=== PATIENT | male | born 1960 | race Caucasian/White ===

== ENCOUNTER 2017-03-27 04:54 | Observation (INO) | payer BC ==
--- NOTE | 2017-03-27 05:19 | EDPHY ---
H & P Stated Complaint: abd pain since fri and vomiting HPI/ROS: HPI CHIEF COMPLAINT: Cough, muscle aches, joint pain, nausea, vomiting, abdominal pain HISTORY OF PRESENT ILLNESS: This patient is a 56-year-old male significant past medical history for asthma, as well as hyperlipidemia he presents emergency room by private vehicle with his for not feeling well. Patient reports for the past 2 weeks he has been sick with an upper respiratory tract infection and sinus infection. He started a Z-Chaz for this earlier last week. He states additionally started prednisone causes asthma was acting up. He saw his primary care doctor Dr. Quinn. Additionally patient began having reflux after taking the prednisone and then developed and nausea vomiting he went to urgent care and got started on Zofran however he has been taking Zofran and continues to have nausea vomiting. He reports tonight that he vomiting got worse with more nausea no diarrhea. He does report that he has abdominal pain. Rather diffusely. He denies fever. Denies chills. Denies urinary symptoms. Does admit to generalized weakness, muscle aches and joint pain. Past Medical History: Hyperlipidemia, asthma Past Surgical History: No recent surgery Social History: Denies drugs alcohol tobacco products. Family History: Noncontributory ROS REVIEW OF SYSTEMS: A comprehensive 10 point review of systems is otherwise negative aside from elements mentioned in the history of present illness. Exam Constitutional appears nontoxic, dehydrated triage nursing summary reviewed, vital signs reviewed, awake/alert. Eyes normal conjunctivae and sclera, EOMI, PERRLA. HENT normal inspection, atraumatic, dry mucous membranes, no epistaxis, neck supple/ no meningismus, no raccoon eyes. Respiratory clear to auscultation bilaterally, normal breath sounds, no respiratory distress, no wheezing. Cardiovascular rate normal, regular rhythm, no murmur, no edema, distal pulses normal. Gastrointestinal mild tenderness to palpation throughout, no rebound, no guarding, normal bowel sounds, no distension, no pulsatile mass. Genitourinary no CVA tenderness. Musculoskeletal no midline vertebral tenderness, full range of motion, no calf swelling, no tenderness of extremities, no meningismus, good pulses, neurovascularly intact. Skin pink, warm, & dry, no rash, skin atraumatic. Neurologic awake, alert and oriented x 3, AAOx3, moves all 4 extremities equally, motor intact, sensory intact, CN II-XII intact, normal cerebellar, normal vision, normal speech. Psychiatric normal mood/affect. Heme/Lymph/Immune no lymphadenopathy. Differential diagnosis includes but is not limited to and in no particular order : Dehydration, electrolyte disturbance, influenza, pneumonia, Bowel obstruction , appendicitis, gallbladder disease, diverticulitis, colitis, enteritis, perforated viscus, gastritis, GERD, esophagitis, urinary tract infection, pyelonephritis, kidney stones Medical Decision Making: Plan for this patient IV establishment with full front desk monitor, IV fluid bolus 2 L, IV Zofran 4 mg, obtain EKG, troponin, chest x-ray two view to rule out pneumonia, CT scan abdomen pelvis with IV contrast to rule out acute abdominal process, influenza. Re-evaluation: EKG interpretation by me on record in [employer] system. Impression time of EKG 5:37 a.m., sinus rhythm rate of 87 I do not appreciate acute ischemic change on this EKG no ST elevation or ST depression. Q-wave noted in lead 3. Possible Q-wave in AVF. 0608: Blood work review this shows a positive troponin. He does not have any chest pain. Distally blood work review shows elevated lipase most likely from vomiting. He is pending a CT scan of his abdomen pelvis at this time. Will repeat his EKG due to the positive troponin. He has no chest pain. ED x-ray chest two view: Negative for pneumonia. Heart size normal. There is peribronchial thickening I appreciate. EKG interpretation by me on record in [employer] system. Impression this is a repeat EKG time a repeat EKG 6:07 a.m., sinus rhythm rate of 82 a Q-waves noted in in to 3 AVF. Otherwise I do not appreciate acute ischemia. T-wave flattening in the V4 V5 V6 leads. No ST elevation. 0653: I did re-evaluate him is back from CT scan is feeling slightly better with fluids. He has agreed for admission for nausea vomiting and abdominal pain. Patient CT scan abdomen pelvis with IV contrast is pending at this time. Influenza is negative. EKG does not seem overtly ischemic. Will admit to the hospitalist service Dr. Saldivar, for dehydration, acute nausea vomiting, generalized weakness, elevated troponin. CT scan abdomen pelvis with IV contrast called to me by Dr. Cortes this shows 8 mm dilated appendix with periappendiceal inflammation. Concerning for acute appendicitis. I will consult surgery and update the hospitalist service. 0717: Spoke with Dr. MALINI Hawkins. He will see and evaluate the patient for acute appendicitis. IV Invanz ordered. Patient updated. Hospitalist service updated. He would like the hospitalist service to continue to admit and he will consult for acute appendicitis. Source: Patient - Personal History Current Tetanus/Diphtheria Vaccine: Yes Current Tetanus Diphtheria and Acellular Pertussis (TDAP): Yes - Medical/Surgical History Hx Asthma: Yes Hx Chronic Respiratory Disease: No Hx Diabetes: No Hx Cardiac Disease: No Hx Renal Disease: No Hx Cirrhosis: No Hx Alcoholism: No Hx HIV/AIDS: No Hx Splenectomy or Spleen Trauma: No Other PMH: asthma - Social History Smoking Status: Never smoked Constitutional: Initial Vital Signs Temperature (C) 36.7 C 03/27/17 04:56 Heart Rate 91 03/27/17 04:56 Respiratory Rate 14 03/27/17 04:56 Blood Pressure 113/86 H 03/27/17 04:56 O2 Sat (%) 94 03/27/17 04:56 O2 Delivery Mode Room Air O2 (L/minute) 2 Allergies/Adverse Reactions: codeine Allergy (Verified 03/27/17 09:17) Vomiting Home Medications: Medication Instructions Recorded Albuterol [Proventil Inhaler HFA 1 - 2 puffs IH DAILY PRN 03/27/17 (*)] Aspirin [Aspirin 81mg (*)] 81 mg PO HS 03/27/17 Famotidine [Pepcid 20 MG (*)] 20 mg PO DAILY PRN 03/27/17 Mometasone/Formoterol [Dulera 200 2 puffs IH BID 03/27/17 Mcg/5 Mcg Inhaler] Ondansetron Odt [Zofran Odt 4 mg 4 mg PO DAILY PRN 03/27/17 (*)] Simvastatin [Zocor] 20 mg PO HS 03/27/17 guaiFENesin [Mucinex 600 MG (*)] 600 mg PO BID PRN 03/27/17 Hydrocodone/APAP 5/325 [[place] 2 tab PO Q4HRS PRN #14 tab 03/28/17 5/325 (*)] Medical Decision Making - Data Points Laboratory Results: Laboratory Results 03/27/17 05:20 03/27/17 05:20 Medications Given: Discontinued Medications Acetaminophen (Tylenol) 650 mg PO Q4HRS PRN PRN Reason: Pain, Mild/Fever, Can Take PO Stop: 09/23/17 06:51 Last Admin: 03/28/17 08:08 Dose: 650 mg Bupivacaine HCl (Sensorcaine 0.5% Vial) Confirm Administered Dose 30 ml .ROUTE .STK-MED ONE Stop: 03/27/17 12:03 Last Admin: 03/27/17 13:15 Dose: 20 ml Cefazolin Sodium (Ancef Syringe) Confirm Administered Dose 1 gm .ROUTE .STK-MED ONE Stop: 03/27/17 12:04 Last Admin: 03/27/17 14:37 Dose: Not Given Ertapenem (Invanz) 1 gm IVP ONCALL ONE PRN Reason: Protocol Stop: 03/27/17 07:11 Last Admin: 03/27/17 11:28 Dose: Not Given Ertapenem (Invanz) 1 gm IVP ONCALL ONE PRN Reason: Protocol Stop: 03/27/17 11:16 Last Admin: 03/27/17 15:03 Dose: Not Given Heparin Sodium (Porcine) (Heparin Sodium) Confirm Administered Dose 2,000 unit .ROUTE .STK-MED ONE Stop: 03/27/17 12:03 Last Admin: 03/27/17 14:39 Dose: Not Given Sodium Chloride (Ns) 1,000 mls @ 0 mls/hr IV EDNOW ONE; Wide Open PRN Reason: Protocol Stop: 03/27/17 05:28 Last Admin: 03/27/17 05:31 Dose: 1,000 mls Sodium Chloride (Ns) 1,000 mls @ 0 mls/hr IV EDNOW ONE; Wide Open PRN Reason: Protocol Stop: 03/27/17 05:28 Last Admin: 03/27/17 05:31 Dose: 1,000 mls Dextrose/Sodium Chloride (D5w 1/2 Ns) 1,000 mls @ 125 mls/hr IV CONT MARGI Stop: 09/23/17 06:59 Last Admin: 03/27/17 09:37 Dose: 1,000 mls Midazolam HCl (Versed) 2 mg IVP ONCALL ONE Stop: 03/27/17 12:28 Last Admin: 03/27/17 12:42 Dose: 2 mg Ondansetron HCl (Zofran) 4 mg IVP EDNOW ONE Stop: 03/27/17 05:28 Last Admin: 03/27/17 05:31 Dose: 4 mg Ondansetron HCl (Zofran) 4 mg IVP Q4HRS PRN PRN Reason: Nausea/Vomiting, Can't Take PO Stop: 09/23/17 06:51 Last Admin: 03/27/17 09:54 Dose: 4 mg Pantoprazole Sodium (Protonix) 40 mg IVP DAILY [facility] Stop: 09/23/17 08:59 Last Admin: 03/27/17 09:54 Dose: 40 mg Pantoprazole Sodium (Protonix) 40 mg PO DAILY [facility] Stop: 09/24/17 08:59 Last Admin: 03/28/17 08:08 Dose: 40 mg Promethazine HCl (Phenergan) 6.25 mg IVP ONCE ONE Stop: 03/27/17 06:57 Last Admin: 03/27/17 08:05 Dose: 6.25 mg Departure - Departure Disposition: [facility] Acute Clinical Impression: Dehydration, Elevated lipase, Elevated troponin Vomiting Qualifiers: Vomiting type: unspecified Vomiting Intractability: non-intractable Nausea presence: with nausea Qualified Code(s): R11.2 - Nausea with vomiting, unspecified Abdominal pain Qualifiers: Abdominal location: unspecified location Qualified Code(s): R10.9 - Unspecified abdominal pain Appendicitis Qualifiers: Appendicitis type: acute appendicitis Acute appendicitis type: with localized peritonitis Qualified Code(s): K35.3 - Acute appendicitis with localized peritonitis Condition: Fair
[2017-03-27] MEDS ORDERED: ONDANSETRON 4 MG/2 ML VIAL ONE ×2 (05:27→12:44)
[2017-03-27] MEDS ORDERED: ONDANSETRON 4 MG/2 ML VIAL IVP ONE (05:27)
[2017-03-27] MEDS ORDERED: NS 1,000 ML IV ONE ×2 (05:27)
[2017-03-27] MEDS ORDERED: IOPAMIDOL (ISOVUE-300) 100 ML BTL ONE (05:30)
[2017-03-27 05:38] LABS: % IMMATURE GRANULYOCYTES 0.6 % (0.0-1.1); ABSOLUTE IMMATURE GRANULOCYTES 0.09 10^3/uL (0.00-0.10); ADD DIFF? NO; ADD MORPH? NO; ADD SCAN? NO; ATYPICAL LYMPHOCYTE FLAG 20 (0-99); FRAGMENT RBC FLAG 0 (0-99); HEMATOCRIT 41.2 % (40.0-51.0); HEMOGLOBIN 14.4 g/dL (13.7-17.5); LEFT SHIFT FLG 10 (0-99); LIPEMIA HEMOLYSIS FLAG 90 (0-99); MEAN CELL HEMOGLOBIN 30.1 pg (27.9-34.1); MEAN PLATELET VOLUME 9.1 fL (8.7-11.7); PLATELET CLUMPS FLAG 0 (0-99); PLATELET COUNT 290 10^3/uL (150-400); RED BLOOD CELL COUNT 4.79 10^6/uL (4.40-6.38); RED CELL DISTRIBUTION WIDTH 13.2 % (11.5-15.2)
--- NOTE | 2017-03-27 05:38 | CPEKG ---
Heart Rate: 87 RR Interval: 690 P-R Interval: 156 QRSD Interval: 88 QT Interval: 356 QTC Interval: 429 P Gem: 63 QRS Gem: -32 T Wave Gem: 23 EKG Severity - ABNORMAL ECG - EKG Impression: SINUS RHYTHM EKG Impression: PROBABLE INFERIOR INFARCT, AGE INDETERMINATE Electronically Signed By: Kelvin Schwartz 27-Mar-2017 07:19:27
[2017-03-27 05:43] LABS: ALANINE AMINOTRANSFERASE 63 IU/L (21-72); ALBUMIN 3.5 g/dL (3.5-5.0); ALKALINE PHOSPHATASE 147 IU/L (38-126); ANION GAP 14 mEq/L (8-16); ASPARTATE AMINOTRANSFERASE 28 IU/L (17-59); BILIRUBIN,TOTAL 1.1 mg/dL (0.1-1.4); BILIRUBIN-CONJUGATED 0.6 mg/dL (0.0-0.5); BILIRUBIN-UNCONJUGATED 0.5 mg/dL (0.0-1.1); CALCIUM 9.1 mg/dL (8.5-10.4); CARBON DIOXIDE 26 mEq/l (22-31); CHLORIDE 97 mEq/L (97-110); CREATININE 0.9 mg/dL (0.7-1.3); GLOMERULAR FILTRATION RATE > 60; GLUCOSE 126 mg/dL (70-100); POTASSIUM 4.2 mEq/L (3.5-5.2); SODIUM 137 mEq/L (134-144); TOTAL PROTEIN 7.1 g/dL (6.3-8.2)
[2017-03-27 05:52] LABS: INR 1.14 (0.83-1.16); PROTIME(PATIENT) 14.8 SEC (12.0-15.0)
[2017-03-27 05:53] LABS: APTT 33.9 SEC (23.0-38.0)
[2017-03-27] MEDS ORDERED: ONDANSETRON DISINTEGRATING 4 MG TAB PO PRN (06:52)
[2017-03-27] MEDS ORDERED: PROMETHAZINE HCL 25 MG/ML INJ IVP PRN ×2 (06:52→13:31)
[2017-03-27] MEDS ORDERED: ONDANSETRON 4 MG/2 ML VIAL IVP PRN ×2 (06:52→13:31)
[2017-03-27] MEDS ORDERED: ACETAMINOPHEN 325 MG TAB PO PRN (06:52)
[2017-03-27] MEDS ORDERED: ALBUTEROL 3 ML DEYVIAL IH PRN ×2 (06:52→13:31)
[2017-03-27] MEDS ORDERED: PROMETHAZINE HCL 25 MG/ML INJ IVP ONE (06:56)
--- NOTE | 2017-03-27 06:56 | CPEKG ---
Heart Rate: 82 RR Interval: 732 P-R Interval: 168 QRSD Interval: 90 QT Interval: 360 QTC Interval: 421 P Foster: 56 QRS Foster: -43 T Wave Foster: 19 EKG Severity - BORDERLINE ECG - EKG Impression: SINUS RHYTHM EKG Impression: LEFT AXIS DEVIATION EKG Impression: LOW VOLTAGE IN FRONTAL LEADS EKG Impression: BORDERLINE T WAVE ABNORMALITIES Electronically Signed By: Kelvin Schwartz 27-Mar-2017 07:19:27
[2017-03-27] MEDS ORDERED: D5W 1/2 NS 1,000 ML IV SCH (07:00)
[2017-03-27] MEDS ORDERED: ERTAPENEM 1 GM VIAL IVP ONE ×2 (07:10→11:15)
[2017-03-27] MEDS ORDERED: HYDROmorphONE/DILAUDID 1 MG/ML INJ IVP PRN ×2 (07:25→13:31)
[2017-03-27] MEDS ORDERED: HYDROCODONE/APAP 5/325 TAB PO PRN ×2 (07:27→13:31)
[2017-03-27] MEDS ORDERED: HYDROmorphone HCL/NS/PF 0.4 MG/2 ML SYR IVP PRN (07:29)
--- NOTE | 2017-03-27 07:32 | PDGENHP ---
History and Physical - Chief Complaint Nausea - History of Present Illness 56 yo M w/ asthma presents with several days of intractable nausea and vomiting. Patient initially had an upper respiratory infection in late February that caused an asthma exacerbation. About 10 days ago he was prescribed a 3 day course of azithromycin and prednisone by his PCP. Since Friday(03/21), he has had constant nausea and has been unable to tolerate PO. He has been to urgent care to receive IVF and Zofran, which helps, but he feels he is dependent on this to be even somewhat comfortable. He has become very frustrated with his nausea so he came to the ED for evaluation. In the ED the preliminary read for his abdominal Ct indicated appendicitis. Surgical service (Dr. Hawkins) was contacted who requested he be admitted to the hospital medicine service. Laboratory work-up remarkable for leukocytosis, elevated lipase, and elevated troponin. He denies any chest pain or cardiac history. History Information - Allergies/Home Medication List Allergies/Adverse Reactions: codeine Allergy (Verified 03/27/17 04:59) Home Medications: Aspirin 81mg (*) 03/27/17 [Last Taken Unknown] Dulera 100 Mcg/5 Mcg Inhaler 03/27/17 [Last Taken Unknown] I have personally reviewed and updated: family history, medical history - Past Medical History asthma - Surgical History Reports: no pertinent surgical hx - Family History Positive for: cancer - Social History Smoking Status: Never smoked Review of Systems Review of Systems: ROS: 10pt was reviewed & negative except for what was stated in HPI & below Physical Exam Physical Exam: Temp Pulse Resp BP Pulse Ox 36.7 C 81 14 119/78 95 03/27/17 04:56 03/27/17 06:00 03/27/17 06:00 03/27/17 06:00 03/27/17 06:00 Constitutional: appears nourished, uncomfortable Eyes: PERRL, EOMI Ears, Nose, Mouth, Throat: moist mucous membranes, dry mucous membranes Cardiovascular: regular rate and rhythym, no murmur, rub, or gallop Respiratory: no respiratory distress, clear to auscultation Gastrointestinal: normoactive bowel sounds, soft, non-tender abdomen Skin: warm, normal color Musculoskeletal: full muscle strength, no muscle tenderness Neurologic: AAOx3, CN II-XII Intact Psychiatric: interacting appropriately, not anxious Lab Data & Imaging Review 03/27/17 05:20 03/27/17 05:20 WBC 14.67 10^3/uL (3.80-9.50) H 03/27/17 05:20 RBC 4.79 10^6/uL (4.40-6.38) 03/27/17 05:20 Hgb 14.4 g/dL (13.7-17.5) 03/27/17 05:20 Hct 41.2 % (40.0-51.0) 03/27/17 05:20 MCV 86.0 fL (81.5-99.8) 03/27/17 05:20 MCH 30.1 pg (27.9-34.1) 03/27/17 05:20 MCHC 35.0 g/dL (32.4-36.7) 03/27/17 05:20 RDW 13.2 % (11.5-15.2) 03/27/17 05:20 Plt Count 290 10^3/uL (150-400) 03/27/17 05:20 MPV 9.1 fL (8.7-11.7) 03/27/17 05:20 Neut % (Auto) 85.5 % (39.3-74.2) H 03/27/17 05:20 Lymph % (Auto) 5.5 % (15.0-45.0) L 03/27/17 05:20 [place] % (Auto) 7.4 % (4.5-13.0) 03/27/17 05:20 Eos % (Auto) 0.5 % (0.6-7.6) L 03/27/17 05:20 Baso % (Auto) 0.5 % (0.3-1.7) 03/27/17 05:20 Nucleat RBC Rel Count 0.0 % (0.0-0.2) 03/27/17 05:20 Absolute Neuts (auto) 12.54 10^3/uL (1.70-6.50) H 03/27/17 05:20 Absolute Lymphs (auto) 0.81 10^3/uL (1.00-3.00) L 03/27/17 05:20 Absolute Monos (auto) 1.08 10^3/uL (0.30-0.80) H 03/27/17 05:20 Absolute Eos (auto) 0.08 10^3/uL (0.03-0.40) 03/27/17 05:20 Absolute Basos (auto) 0.07 10^3/uL (0.02-0.10) 03/27/17 05:20 Absolute Nucleated RBC 0.00 10^3/uL (0-0.01) 03/27/17 05:20 Immature Gran % 0.6 % (0.0-1.1) 03/27/17 05:20 Immature Gran # 0.09 10^3/uL (0.00-0.10) 03/27/17 05:20 PT 14.8 SEC (12.0-15.0) 03/27/17 05:20 INR 1.14 (0.83-1.16) 03/27/17 05:20 APTT 33.9 SEC (23.0-38.0) 03/27/17 05:20 VBG Lactic Acid 1.2 mmol/L (0.7-2.1) 03/27/17 06:20 Sodium 137 mEq/L (134-144) 03/27/17 05:20 Potassium 4.2 mEq/L (3.5-5.2) 03/27/17 05:20 Chloride 97 mEq/L (97-110) 03/27/17 05:20 Carbon Dioxide 26 mEq/l (22-31) 03/27/17 05:20 Anion Gap 14 mEq/L (8-16) 03/27/17 05:20 BUN 15 mg/dL (7-23) 03/27/17 05:20 Creatinine 0.9 mg/dL (0.7-1.3) 03/27/17 05:20 Estimated GFR > 60 03/27/17 05:20 Glucose 126 mg/dL (70-100) H 03/27/17 05:20 Calcium 9.1 mg/dL (8.5-10.4) 03/27/17 05:20 Total Bilirubin 1.1 mg/dL (0.1-1.4) D 03/27/17 05:20 Conjugated Bilirubin 0.6 mg/dL (0.0-0.5) H 03/27/17 05:20 Unconjugated Bilirubin 0.5 mg/dL (0.0-1.1) 03/27/17 05:20 AST 28 IU/L (17-59) 03/27/17 05:20 ALT 63 IU/L (21-72) 03/27/17 05:20 Alkaline Phosphatase 147 IU/L (38-126) H 03/27/17 05:20 Troponin I 0.390 ng/mL (0.000-0.034) H 03/27/17 05:20 Total Protein 7.1 g/dL (6.3-8.2) 03/27/17 05:20 Albumin 3.5 g/dL (3.5-5.0) 03/27/17 05:20 Lipase 1327 IU/L (23-300) H 03/27/17 05:20 Nasal Influenza A PCR NEGATIVE FOR FLU A (NEGATIVE) 03/27/17 05:30 Nasal Influenza B PCR NEGATIVE FOR FLU B (NEGATIVE) 03/27/17 05:30 Imaging Review: CT A/P consistent with acute appendicitis. Visualized and Interpreted EKG results: Yes EKG Interpretation: Positive for: normal sinsus rhythm, NS ST wave abnormalities Assessment & Plan Assessment: 56 yo M w/ asthma presents with several days of intractable nausea and vomiting found to have likely acute appendicitis on CT. Plan: 1. Nausea, vomiting - CT findings concerning for acute appendicitis, although this is an atypical presentation noting minimal tenderness. Patient also describes significant reflux symptoms, so may have some element of overlying gastritis. Clinically picture is not consistent with pancreatitis despite elevated lipase. - NPO, mIVF, Zofran and Phenergan PRN - Will also start daily PPI (IV for now while not tolerating PO) 2. Acute appendicitis - Diagnosis mostly based on CT findings; atypical presentation noting minimal pain. WBC elevated at 14. - Surgery consulted, appreciate assistance - Maintain NPO 3. Elevated troponin - 0.39 on admission with no symptoms to suggest ACS. ECG without evidence of ischemia. This likely represents either demand or possibly mild myocarditis. Will trend enzymes and monitor on telemetry. 4. Asthma - On Dulera for daily control with albuterol PRN. He had an exacerbation in late February but seems well controlled at this time on exam. Continue home medications. Diet - NPO Code - Full Ppx - SCDs Dispo - Admit to observation status
[2017-03-27] MEDS ORDERED: ENOXAPARIN 40 MG/0.4 ML SYR SC SCH (09:00)
[2017-03-27] MEDS ORDERED: PANTOPRAZOLE SODIUM 40 MG VIAL IVP SCH (09:00)
[2017-03-27 10:16] LABS: COLOR YELLOW; LEUKOCYTE ESTERASE,URINE NEGATIVE (NEGATIVE); NITRITE,URINE NEGATIVE (NEGATIVE)
[2017-03-27 10:19] LABS: MUCUS 2+ /lpf (NONE-1+)
--- NOTE | 2017-03-27 10:32 | ECHO ---
[email or web address] [address] [address] Main: [phone] Fax: [email or web address] Echocardiogram Name: GENTRY FERNÁNDEZ MR#: [id number] Study Date: 03/27/2017 Study Time: 08:39 AM Date of : 1960 Age: 56 year(s) Height: ( ) Weight: ( ) BSA: Gender: Male Examination: Echo Indication: elev troponin; pre-op stat echo Image Quality: Technically Difficult Contrast: Requested by: Gentry Méndez BP: 109 mmHg/55 mmHg Heart Rate: Rhythm: Normal sinus rhythm Indication: elev troponin; pre-op stat echo Procedure Staff Folder Machine Operator: Hyun Lyons Reading Physician: Julio C Bains Requesting Provider: Conclusions: Normal global systolic LV function. EF is 65 %. Normal RV function. Trivial to mild mitral regurgitation. Trivial tricuspid valve regurgitation. Measurements: Chambers Valvular Assessment AV/MV Valvular Assessment TV/PV Normal Normal Normal Name Value Range Name Value Range Name Value Range Ao Lani (MM): 3.6 cm (2.2 cm-3.7 AV Vmax: 1.02 m/s (1 m/s-1.7 PV Vmax: 0.84 m/s (0.6 m/s-0.9 cm) m/s) m/s) IVSd (2D): 1.2 cm (0.6 cm-1.1 AV maxP mmHg ( - ) PV PGmax: 3 mmHg ( - ) cm) LVOT Vmax: 0.84 m/s (0.7 m/s-1.1 LVDd (2D): 5.0 cm (4.2 cm-5.9 m/s) cm) MV E Vmax: 0.60 m/s ( - ) LVDs (2D): 3.0 cm (2.1 cm-4 MV A Vmax: 0.42 m/s ( - ) cm) MV E/A: 1.43 ( - ) LVPWd (2D): 0.9 cm (0.6 cm-1 cm) LVEF (BP): 65 % (>=55 %) RVDd(2D): 2.8 cm (1.9 cm-3.8 cmmm) Continued Measurements: Chambers Valvular Assessment AV/MV Name Value Name Value LADs Lon.4 cm MV DecTime: 151 m/s LA Area: 18.6 cm2 MV E/E' Septal: 7.20 Patient: GENTRY FERNÁNDEZ Study Date: 03/27/2017 Page 1 of 2 08:39 AM LA Volume: 57 ml MV E/E' Lateral: 6.70 RA Area: 12.7 cm2 Additional Vessels Name Value Ao Ascendin.1 cm Findings: Left Ventricle: Normal size left ventricle. Borderline concentric LV hypertrophy. Normal global systolic LV function. EF is 65 %. Normal diastolic LV function. No obvious regional wall motion abnormalities noted, however it is difficult to completely rule out due to poor endocardial definition in the apical views. . Right Ventricle: Normal size right ventricle. Normal RV function. Left Atrium: The left atrium is normal in size. Right Atrium: The right atrium is normal in size. Mitral Valve: The mitral valve is normal in appearance. Trivial to mild mitral regurgitation. No mitral stenosis is present. Aortic Valve: The aortic valve is tri-leaflet. There is no aortic valve regurgitation. No aortic valve stenosis is present. Tricuspid Valve: The tricuspid valve appears normal. Trivial tricuspid valve regurgitation. Pulmonary artery pressure is not obtained due to inadequate TR jet. Pulmonic Valve: The pulmonic valve is normal in appearance and function. Mild pulmonic valve regurgitation is noted. Aorta: The aorta is normal. Normal size aortic root measuring 3.6 cm. Normal size ascending aorta measuring 3.1 cm. IVC: The IVC is normal sized. Pericardium: No pericardial effusion. (No Signature Object) Patient: GENTRY FERNÁNDEZ Study Date: 03/27/2017 Page 2 of 2 08:39 AM [id number]
--- NOTE | 2017-03-27 11:06 | PDCARCONS ---
Cardiology Consult Reason for Consult: Surgery clearance from cardiology Chief Complaint: Acute appendicitis, ongoing nausea with occasional emesis Requesting Physician: Dr. Junaid Hawkins History of Present Illness: HPI: The patient is a 56-year-old male with no cardiac history. He was evaluated in the emergency department for ongoing nausea and was admitted for appendicitis. The patient was treated with Prednisone and Azithromycin for asthma and URI symptoms 1.5 weeks ago. After starting the treatment he developed esophageal burning and nausea. His nausea has since remained constant with intermittent bouts of emesis for 1 week. He was evaluated in the emergency department and found to have acute appendicitis seen on CT. His lab work showed elevated leukocytosis, elevated lipase, and elevated troponin. 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 Dr. Hawkins has requested a cardiology consultation prior to surgery. I examined the patient. The patient states he has no history of prior TN. He had an echocardiogram 2 years ago that was normal according to his report. His recent echo performed during admission was normal with normal heart power. 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 Past Medical History: Asthma Family History: The patients father had TN at age 46. Social History: . Nonsmoker. History Information - Allergies/Home Medication List Allergies/Adverse Reactions: codeine Allergy (Verified 03/27/17 09:17) Vomiting Home Medications: Albuterol [Proventil Inhaler HFA (*)] 1 - 2 puffs IH DAILY PRN 03/27/17 [Last Taken Unknown] Aspirin [Aspirin 81mg (*)] 81 mg PO HS 03/27/17 [Last Taken 03/24/17] Famotidine [Pepcid 20 MG (*)] 20 mg PO DAILY PRN 03/27/17 [Last Taken 03/27/17 02:00] Mometasone/Formoterol [Dulera 200 Mcg/5 Mcg Inhaler] 2 puffs IH BID 03/27/17 [ Last Taken 03/27/17 07:00] Ondansetron Odt [Zofran Odt 4 mg (*)] 4 mg PO DAILY PRN 03/27/17 [Last Taken 02:00] Simvastatin [Zocor] 20 mg PO HS 03/27/17 [Last Taken 03/24/17] guaiFENesin [Mucinex 600 MG (*)] 600 mg PO BID PRN 03/27/17 [Last Taken 03/26/17 ] I have personally reviewed and updated: family history, medical history, social history, surgical history - Past Medical History asthma - Surgical History Reports: no pertinent surgical hx - Family History Additional family history: The patients father had an TN at age 46. - Social History Smoking Status: Never smoked Physical Exam Physical Exam: Temp Pulse Resp BP Pulse Ox 37.1 C 81 24 H 109/56 L 93 03/27/17 10:21 03/27/17 10:21 03/27/17 10:21 03/27/17 10:21 03/27/17 10:21 O2 (L/minute) 1 Constitutional: no apparent distress Eyes: anicteric sclera Ears, Nose, Mouth, Throat: moist mucous membranes Cardiovascular: regular rate and rhythym, no murmur, rub, or gallop, No JVD, No edema Respiratory: no respiratory distress, no rales or rhonchi, expiratory wheeze Gastrointestinal: normoactive bowel sounds, tenderness, No guarding Skin: warm, normal color Lab and Imaging 03/27/17 05:20 03/27/17 05:20 WBC 14.67 10^3/uL (3.80-9.50) H 03/27/17 05:20 RBC 4.79 10^6/uL (4.40-6.38) 03/27/17 05:20 Hgb 14.4 g/dL (13.7-17.5) 03/27/17 05:20 Hct 41.2 % (40.0-51.0) 03/27/17 05:20 MCV 86.0 fL (81.5-99.8) 03/27/17 05:20 MCH 30.1 pg (27.9-34.1) 03/27/17 05:20 MCHC 35.0 g/dL (32.4-36.7) 03/27/17 05:20 RDW 13.2 % (11.5-15.2) 03/27/17 05:20 Plt Count 290 10^3/uL (150-400) 03/27/17 05:20 MPV 9.1 fL (8.7-11.7) 03/27/17 05:20 Neut % (Auto) 85.5 % (39.3-74.2) H 03/27/17 05:20 Lymph % (Auto) 5.5 % (15.0-45.0) L 03/27/17 05:20 [place] % (Auto) 7.4 % (4.5-13.0) 03/27/17 05:20 Eos % (Auto) 0.5 % (0.6-7.6) L 03/27/17 05:20 Baso % (Auto) 0.5 % (0.3-1.7) 03/27/17 05:20 Nucleat RBC Rel Count 0.0 % (0.0-0.2) 03/27/17 05:20 Absolute Neuts (auto) 12.54 10^3/uL (1.70-6.50) H 03/27/17 05:20 Absolute Lymphs (auto) 0.81 10^3/uL (1.00-3.00) L 03/27/17 05:20 Absolute Monos (auto) 1.08 10^3/uL (0.30-0.80) H 03/27/17 05:20 Absolute Eos (auto) 0.08 10^3/uL (0.03-0.40) 03/27/17 05:20 Absolute Basos (auto) 0.07 10^3/uL (0.02-0.10) 03/27/17 05:20 Absolute Nucleated RBC 0.00 10^3/uL (0-0.01) 03/27/17 05:20 Immature Gran % 0.6 % (0.0-1.1) 03/27/17 05:20 Immature Gran # 0.09 10^3/uL (0.00-0.10) 03/27/17 05:20 PT 14.8 SEC (12.0-15.0) 03/27/17 05:20 INR 1.14 (0.83-1.16) 03/27/17 05:20 APTT 33.9 SEC (23.0-38.0) 03/27/17 05:20 VBG Lactic Acid 1.2 mmol/L (0.7-2.1) 03/27/17 06:20 Sodium 137 mEq/L (134-144) 03/27/17 05:20 Potassium 4.2 mEq/L (3.5-5.2) 03/27/17 05:20 Chloride 97 mEq/L (97-110) 03/27/17 05:20 Carbon Dioxide 26 mEq/l (22-31) 03/27/17 05:20 Anion Gap 14 mEq/L (8-16) 03/27/17 05:20 BUN 15 mg/dL (7-23) 03/27/17 05:20 Creatinine 0.9 mg/dL (0.7-1.3) 03/27/17 05:20 Estimated GFR > 60 03/27/17 05:20 Glucose 126 mg/dL (70-100) H 03/27/17 05:20 Calcium 9.1 mg/dL (8.5-10.4) 03/27/17 05:20 Total Bilirubin 1.1 mg/dL (0.1-1.4) D 03/27/17 05:20 Conjugated Bilirubin 0.6 mg/dL (0.0-0.5) H 03/27/17 05:20 Unconjugated Bilirubin 0.5 mg/dL (0.0-1.1) 03/27/17 05:20 AST 28 IU/L (17-59) 03/27/17 05:20 ALT 63 IU/L (21-72) 03/27/17 05:20 Alkaline Phosphatase 147 IU/L (38-126) H 03/27/17 05:20 Troponin I 0.397 ng/mL (0.000-0.034) H 03/27/17 08:25 Total Protein 7.1 g/dL (6.3-8.2) 03/27/17 05:20 Albumin 3.5 g/dL (3.5-5.0) 03/27/17 05:20 Lipase 1327 IU/L (23-300) H 03/27/17 05:20 Urine Color YELLOW 03/27/17 09:40 Urine Appearance CLEAR 03/27/17 09:40 Urine pH 5.0 (5.0-7.5) 03/27/17 09:40 Ur Specific [place] > 1.035 (1.002-1.030) H 03/27/17 09:40 Urine Protein 1+ (NEGATIVE) H 03/27/17 09:40 Urine Ketones 1+ (NEGATIVE) H 03/27/17 09:40 Urine Blood 2+ (NEGATIVE) H 03/27/17 09:40 Urine Nitrate NEGATIVE (NEGATIVE) 03/27/17 09:40 Urine Bilirubin NEGATIVE (NEGATIVE) 03/27/17 09:40 Urine Urobilinogen 4.0 EU (0.2-1.0) H 03/27/17 09:40 Ur Leukocyte Esterase NEGATIVE (NEGATIVE) 03/27/17 09:40 Urine RBC 3-5 /hpf (0-3) H 03/27/17 09:40 Urine WBC 1-3 /hpf (0-3) 03/27/17 09:40 Ur Epithelial Cells NONE SEEN /lpf (NONE-1+) 03/27/17 09:40 Hyaline Casts 1-5 /lpf (0-1) 03/27/17 09:40 Urine Mucus 2+ /lpf (NONE-1+) H 03/27/17 09:40 Urine Glucose NEGATIVE (NEGATIVE) 03/27/17 09:40 Nasal Influenza A PCR NEGATIVE FOR FLU A (NEGATIVE) 03/27/17 05:30 Nasal Influenza B PCR NEGATIVE FOR FLU B (NEGATIVE) 03/27/17 05:30 Visualized and Interpreted EKG results: Yes EKG Interpretation: Positive for: other (sinus rhythm cannot rule out old inferior TN , ay be a funciotn of extreme left axis deviation.) Telemetry: normal sinus rhythm Echocardiogram: See full report concentric LVH without segmental wall motion abnormality. no serious valvular heart disease... A/P Assessment: Assessment: I spoke with the patient and his and discussed the risks and benefits of appendectomy. They have elected to proceed with the planned surgery of appendectomy given the potential benefits of the outcome. The patient is at an increased risk of perioperative cardiovascular event given his abnormal EKG, minimally elevated troponin level and family history of heart disease. However, I believe the risk is acceptably low given the expected benefits of the operation or appendectomy for what appears to be acute appendicitis. In patient's with normal ejection fraction, the risk of sudden incapacitation from sustained VT or VF is very low. He can proceed with the planned surgery of appendectomy without further cardiac testing. He will need an assessment of his coronary arteries at some point to rule out obstructive coronary disease. I spoke to Dr. Junaid Hawkins, General surgery, and have updated him on the patient's cardiac status. He will proceed with the planned surgery for appendicitis.
[2017-03-27] MEDS ORDERED: BUPIVACAINE 0.5% 30 ML SDV ONE (12:02)
[2017-03-27] MEDS ORDERED: HEPARIN 1000 UNIT/1 ML MDV ONE (12:02)
[2017-03-27] MEDS ORDERED: ceFAZolin 1 GM/5 ML SYR ONE (12:03)
[2017-03-27] MEDS ORDERED: MIDAZOLAM 2 MG/2 ML VIAL IVP ONE (12:27)
--- NOTE | 2017-03-27 12:31 | PDANEPAE ---
ANE Past Medical History - Cardiovascular History Hx Hypertension: No Hx Arrhythmias: No Hx Chest Pain: No Hx Coronary Artery / Peripheral Vascular Disease: No Hx CHF / Valvular Disease: No Hx Palpitations: No - Pulmonary History Hx COPD: No Hx Asthma/Reactive Airway Disease: Yes Hx Recent Upper Respiratory Infection: Yes Hx Oxygen in Use at Home: No Hx Sleep Apnea: No Sleep Apnea Screening Result - Last Documented: Positive - Endocrine History Hx Diabetes: No Hypothyroid: No Hyperthyroid: No Obesity: mild - Chronic Pain History Chronic Pain: No ANE Review of Systems Review of Systems: - Exercise capacity METS (RN): 5 METS ANE Patient History - Allergies Allergies/Adverse Reactions: codeine Allergy (Verified 03/27/17 09:17) Vomiting - Home Medications Home Medications: Albuterol [Proventil Inhaler HFA (*)] 1 - 2 puffs IH DAILY PRN 03/27/17 [Last Taken Unknown] Aspirin [Aspirin 81mg (*)] 81 mg PO HS 03/27/17 [Last Taken 03/24/17] Famotidine [Pepcid 20 MG (*)] 20 mg PO DAILY PRN 03/27/17 [Last Taken 03/27/17 02:00] Mometasone/Formoterol [Dulera 200 Mcg/5 Mcg Inhaler] 2 puffs IH BID 03/27/17 [ Last Taken 03/27/17 07:00] Ondansetron Odt [Zofran Odt 4 mg (*)] 4 mg PO DAILY PRN 03/27/17 [Last Taken 02:00] Simvastatin [Zocor] 20 mg PO HS 03/27/17 [Last Taken 03/24/17] guaiFENesin [Mucinex 600 MG (*)] 600 mg PO BID PRN 03/27/17 [Last Taken 03/26/17 ] - NPO status NPO Since - Liquids (Date): 03/26/17 NPO Since - Liquids (Time): 02:00 NPO Since - Solids (Date): 03/26/17 NPO Since - Solids (Time): 19:00 - Anes Hx Anes Hx: no prior problems - Smoking Hx Smoking Status: Never smoked - Alcohol Use Alcohol Use: Occasionally ANE Labs/Vital Signs - Labs Result Diagrams: 03/27/17 05:20 03/27/17 05:20 - Vital Signs Blood Pressure: 110/73 Heart Rate: 83 Respiratory Rate: 20 O2 Sat (%): 91 Height: 172.72 cm Weight: 96.5 kg ANE Physical Exam - Airway Neck exam: FROM Mouth exam: normal dental/mouth exam - Pulmonary Pulmonary: no respiratory distress, no rales or rhonchi, clear to auscultation - Cardiovascular Cardiovascular: regular rate and rhythym - ASA Status ASA Status: II ANE Anesthesia Plan Anesthesia Plan: general endotracheal anesthesia
[2017-03-27] MEDS ORDERED: MIDAZOLAM 2 MG/2 ML VIAL ONE (12:40)
[2017-03-27] MEDS ORDERED: fentaNYL 100 MCG/2 ML INJ ONE (12:40)
[2017-03-27] MEDS ORDERED: REMIFENTANIL HCL 1 MG VIAL ONE (12:40)
[2017-03-27] MEDS ORDERED: PROPOFOL/EMULSION 500 MG/50 ML BOTTLE IV ONE (12:41)
[2017-03-27] MEDS ORDERED: PROPOFOL 200 MG/20 ML VIAL ONE (12:41)
[2017-03-27] MEDS ORDERED: LIDOCAINE 2% 5 ML SDV ONE (12:42)
[2017-03-27] MEDS ORDERED: ROCURONIUM 50 MG/5 ML VIAL ONE (12:43)
[2017-03-27] MEDS ORDERED: KETOROLAC 30 MG/1 ML SDV ONE (12:44)
[2017-03-27] MEDS ORDERED: DEXAMETHASONE 4 MG/ML VIAL ONE (12:44)
[2017-03-27] MEDS ORDERED: OXYCODONE/APAP 5/325 TAB PO PRN (13:31)
[2017-03-27] MEDS ORDERED: LR 500 ML IV PRN (13:31)
[2017-03-27] MEDS ORDERED: NALOXONE HCL 0.4 MG/ML INJ IVP PRN (13:31)
[2017-03-27] MEDS ORDERED: ACETAMINOPHEN 500 MG TAB PO PRN (13:31)
[2017-03-27] MEDS ORDERED: MEPERIDINE 25 MG/ML SYR IVP PRN (13:31)
[2017-03-27] MEDS ORDERED: fentaNYL 100 MCG/2 ML INJ IVP PRN (13:31)
[2017-03-27] MEDS ORDERED: SUGAMMADEX SODIUM 200 MG/2 ML VIAL IVP ONE (13:40)
--- NOTE | 2017-03-27 14:24 | POSTOPPROG ---
Post Op Note Date of Operation: 03/27/17 Surgeon: Bandar Hawkins Infectious Disease Physician: Yonatan Bruce Anesthesiologist: Dr Kirkland Anesthesia: GET(General Endotracheal) Pre-op Diagnosis: appendicitis Post-op Diagnosis: same Indication: same Procedure: lap appendectomy Findings: inflammed appendix Inf/Abcess present in the surg proc area at time of surgery?: No Depth: Organ Space EBL: Minimal Specimen(s): appendix
--- NOTE | 2017-03-27 14:34 | POSTANESTH ---
Post Anesthetic Evaluation Cardiovascular Status: Normal, Stable Respiratory Status: Normal, Stable Level of Consciousness/Mental Status: Can Participate in Eval Pain Control: Adequate, Prn Tx Ordered Nausea/Vomiting Control: Adequate, Prn Tx Ordered Complications Possibly Related to Anesthesia: None Noted
--- NOTE | 2017-03-27 15:15 | ASMTCASEMG ---
Living Arrangements What is your living Answers: With Spouse arrangement? Who do you live with? Type Of Residence What kind of residence do Answers: House you live in? Discharge Plan Comments Coordination Status Comments Notes: Pt is a 56 y/o man admitted for nausea. Pt had his appedix removed yesterday. No therapies ordered at this time. Pt will most likely d/c independent when medically stable. CM available for changes. Plan: Independent Date Signed: 03/27/2017 03:15 PM Electronically Signed By:MISTI Garza
--- NOTE | 2017-03-27 16:19 | HOSPPROG ---
Hospitalist Progress Note Assessment/Plan: # Acute appendicitis - in OR currently - cleared by cardiology prior - monitor post-op current without nausea - diet per surgery # Abnormal EKG with indeterminate trop - seen by Cardiology - oxygen saturations 95% on 2L TELE (personally reviewed and interpreted) Sinus rhythm no acute changes - follow troponin 0.39 this am - if does not bump expect outpatient risk stratification is appropriate # Proph- when cleared by Hawkins # diet - per surgery # dispo - suspect tomorrow if smooth post op recovery and no bump in troponins I have discussed the case with RN - will provide supportive care overnight Subjective: mild abd pain Objective: Vital Signs Temp Pulse Resp BP Pulse Ox 36.5 C 79 16 103/68 95 03/27/17 15:45 03/27/17 15:45 03/27/17 15:45 03/27/17 15:45 03/27/17 15:45 03/26/17 03/27/17 03/28/17 05:59 05:59 05:59 Intake Total 250 Balance 250 PT 14.8 SEC (12.0-15.0) 03/27/17 05:20 INR 1.14 (0.83-1.16) 03/27/17 05:20 - Physical Exam Constitutional: appears nourished Eyes: anicteric sclera Ears, Nose, Mouth, Throat: moist mucous membranes Cardiovascular: regular rate and rhythym Respiratory: no respiratory distress, no rales or rhonchi Gastrointestinal: normoactive bowel sounds, tenderness, No rebound Genitourinary: no bladder fullness Skin: warm Musculoskeletal: No asymmetric calves Neurologic: AAOx3 Psychiatric: interacting appropriately Lymph, Heme, Immunologic: no cervical LAD ICD10 Worksheet Patient Problems: Problems Problem Status Onset Abdominal pain Acute Appendicitis Acute Dehydration Acute Elevated lipase Acute Elevated troponin Acute Vomiting Acute
--- NOTE | 2017-03-27 19:37 | SOAPPROG ---
SOAP Progress Note Assessment/Plan: Assessment: Postop lap appy/doing well/afebrile/abdomen soft/tolerating p.o. Plan: Home in the a.m. if okay with cardiology 03/27/17 19:36 Objective: Vital Signs Temp Pulse Resp BP Pulse Ox 37.0 C 80 20 98/69 L 92 03/27/17 18:28 03/27/17 18:28 03/27/17 18:28 03/27/17 18:28 03/27/17 18:28 03/26/17 03/27/17 03/28/17 05:59 05:59 05:59 Intake Total 610 Output Total 675 Balance -65 PT 14.8 SEC (12.0-15.0) 03/27/17 05:20 INR 1.14 (0.83-1.16) 03/27/17 05:20 ICD10 Worksheet Patient Problems: Problems Problem Status Onset Abdominal pain Acute Appendicitis Acute Dehydration Acute Elevated lipase Acute Elevated troponin Acute Vomiting Acute
[2017-03-27 20:19] VITALS: RESP 16
[2017-03-28 07:45] VITALS: BP 117/77; PULSE 85; TEMP 98.4; O2SAT 91
--- NOTE | 2017-03-28 08:22 | SOAPPROG ---
SOAP Progress Note Assessment/Plan: Assessment: Postop lap appy/doing well/afebrile/abdomen soft/tolerating p.o. Plan: Home in the a.m. if okay with cardiology 03/27/17 19:36 03/28/17 08:21 doing well/ nausea resolved/ afebrile/ nonicteric/ eating well plan check labs/ home today from surgery standpoint Objective: Vital Signs Temp Pulse Resp BP Pulse Ox 36.9 C 85 16 117/77 91 L 03/28/17 07:44 03/28/17 07:44 03/28/17 07:44 03/28/17 07:44 03/28/17 07:44 03/27/17 03/28/17 03/29/17 05:59 05:59 05:59 Intake Total 1210 Output Total 1075 Balance 135 PT 14.8 SEC (12.0-15.0) 03/27/17 05:20 INR 1.14 (0.83-1.16) 03/27/17 05:20 ICD10 Worksheet Patient Problems: Problems Problem Status Onset Abdominal pain Acute Appendicitis Acute Dehydration Acute Elevated lipase Acute Elevated troponin Acute Vomiting Acute
[2017-03-28] MEDS ORDERED: PANTOPRAZOLE SODIUM 40 MG TAB PO SCH (09:00)
[2017-03-28 09:35] LABS: ALBUMIN 2.7 g/dL (3.5-5.0); BILIRUBIN,TOTAL 0.5 mg/dL (0.1-1.4); BILIRUBIN-CONJUGATED 0.3 mg/dL (0.0-0.5); BILIRUBIN-UNCONJUGATED 0.2 mg/dL (0.0-1.1); TOTAL PROTEIN 5.7 g/dL (6.3-8.2)
--- NOTE | 2017-03-28 16:25 | GDS ---
[f rep st] DISCHARGE SUMMARY DISCHARGE DIAGNOSES: Include: 1. Acute appendicitis, status post surgical appendectomy. 2. Indeterminate troponin. 3. Asthma. HISTORY OF PRESENT ILLNESS: This is a 56-year-old male, who presents with chronic severe nausea and vomiting, found to have acute appendicitis. CONSULTATIVE SERVICES: Include: 1. General Surgery, Dr. Hawkins. 2. Cardiology. PROCEDURES: 1. On 03/27/2017, patient underwent appendectomy. 2. On 03/27/2017, patient underwent a transthoracic echocardiogram that showed borderline concentric LVH with no obvious regional wall motion abnormalities. Ejection fraction estimated at 65%. HOSPITAL COURSE BY ISSUE: 1. Acute appendicitis. The patient was evaluated and cleared by Cardiology and taken for successful appendectomy. On the morning of disposition, patient is tolerating p.o. [facility] the next week for a postoperative evaluation. 2. Indeterminate troponin. Patient did not have chest symptoms but did have EKG finding potentially concerning for old inferior infarct. Transthoracic echocardiogram confirmed normal LV function with out segmental wall motion abnormalities. The patient was cleared for the OR. His troponins peaked a t admission at 0.39 and came down postoperatively to 0.26, last checked. He has been referred for ou tpatient cardiology followup for appropriate risk stratification. MEDICATIONS AT THE TIME OF TRANSFER: Please reference med rec printed on 03/28/2017. FOLLOWUP APPOINTMENTS: Include: 1. With Dr. Hawkins, postoperatively for followup of his appendectomy. 2. With Dr. Headley or Cardiology from [facility] for risk stratification and evaluation of his indeterminate troponin perioperatively. 3. Dr. Farrah Hooker for outpatient management of his medical co-morbidities. TIME SEEN: I spent greater than 30 minutes in the planning and coordination of this discharge. /[id number]/MODL
--- NOTE | 2017-03-28 18:03 | ASDISCHSUM ---
Discharge Information Plan Status:Home with No Needs Medically Cleared to Leave: Discharge Date:03/28/2017 10:06 AM CM D/C Disposition:Home, Routine, Self-Care ADT D/C Disposition:Home, Routine, Self-Care Projected Discharge Date:03/28/2017 10:06 AM Transportation at D/C: Discharge Delay Reason: Follow-Up Date:03/28/2017 10:06 AM Discharge Slot: Final Diagnosis: Placement Information Patient Contact Information Contact Name:BG Relationship: Address:[address] City:[place] Alternate Phone: [facility]/Zip Code:[place] [address] Email: Financial Information Financial Class:HMO and PPO Plans Primary Plan Desc:[facility] Primary Plan Number:[id number] Secondary Plan Desc: Secondary Plan Number: Assessment Information [facility] Initial CM Assessment Living Arrangements What is your living Answers: With Spouse arrangement? Who do you live with? Type Of Residence What kind of residence do Answers: House you live in? Discharge Plan Comments Coordination Status Comments Notes: Pt is a 56 y/o man admitted for nausea. Pt had his appedix removed yesterday. No therapies ordered at this time. Pt will most likely d/c independent when medically stable. CM available for changes. Plan: Independent Date Signed: 03/27/2017 03:15 PM Electronically Signed By:MISTI Garza Intervention Information
--- NOTE | 2017-04-01 15:29 | GOP ---
[f rep st] OPERATIVE REPORT DATE OF OPERATION: 03/27/2017 SURGEON: Bandar Hawkins MD CHARTERED FINANCIAL ANALYST: BENJAMIN Leonard. ANESTHESIOLOGIST: Dr. Perez. PREOPERATIVE DIAGNOSIS: Acute appendicitis. POSTOPERATIVE DIAGNOSIS: Acute appendicitis. PROCEDURE PERFORMED: Laparoscopic appendectomy. FINDINGS: The patient was found to have an inflamed, long, retrocecal appendix. DESCRIPTION OF PROCEDURE: The patient was taken to the operating room, where he received satisfactor y general endotracheal anesthesia by Dr. Perez. He was placed in supine position, prepped and draped in usual sterile fashion. A periumbilical incision was made. A Veress needle was inserted. Pneumoperitoneum was established. Trocar was introduced. Laparoscope introduced. Good visualizatio n was obtained. Two other trocars were placed in midline under direct vision. The cecum was rotated medially and the lateral peritoneal reflection was incised, and a retrocecal appendix was identified . This extended almost all the way up to the gallbladder. The appendix was mobilized in a retrograd e manner, dividing the mesoappendix with the Harmonic Scalpel until the entire appendix could be mobi lized. The base was then divided with Endo-FABI stapler. The specimen was placed in a specimen bag a nd extracted through the umbilical incision. Hemostasis was assured. Trocars were removed under dir ect vision. Trocar sites were closed with 0 Vicryl for the fascia and 4-0 Monocryl subcuticular stit ch for the skin. All layers were infiltrated with 0.5% Marcaine. He tolerated the procedure well an d was taken to the recovery room in good condition. No complications. /[id number]/MODL
--- NOTE | 2017-04-01 15:45 | GHP ---
[f rep st] PREOP HISTORY AND PHYSICAL DATE OF ADMISSION: 03/27/2017 HISTORY OF PRESENT ILLNESS: The patient is a 56-year-old male who presents to the ER with abdominal pain; particularly disabling nausea more than pain. Workup in the ER reveals CT scan showing a large retrocecal inflamed appendix. He, however, also had a troponin level which was mildly elevated. He is admitted at this time for a laparoscopic appendectomy, but for medical evaluation first. He has been on some prednisone for an upper respiratory infection secondary to his asthma. The nausea has b een unremitting, although there has been no real vomiting. He has had no diarrhea or fever. ALLERGIES: Codeine. MEDICATIONS: Aspirin and Dulera, which is an inhaler. PAST MEDICAL HISTORY: Includes asthma. He has had no major surgeries or hospitalizations. FAMILY HISTORY: Noncontributory. REVIEW OF SYSTEMS: Reveals no other major medical problems on a full 10-point review of systems. Sp ecifically, he does not smoke and denies any cardiac symptoms. PHYSICAL EXAMINATION: GENERAL: An alert, slightly overweight -kher-iad male in no acute d istress. HEAD AND NECK: Reveal no icterus, adenopathy, or oral lesions. His pupils are normal. NE CK: Supple, nontender, without masses or bruits. CHEST: Clear and symmetric. CARDIAC: Regular rh ythm. ABDOMEN: Soft, minimally tender in the right lower quadrant, but distended with decreased bow el sounds. No major rebound findings. EXTREMITIES: Benign with full pulses. GENITALIA: Normal. IMPRESSION: Acute appendicitis, masked somewhat by his prednisone use for his recent asthma. Risks and options have been fully discussed and we plan on proceeding with laparoscopic appendectomy once t he medical clearance is obtained. /[id number]/MODL
== END 2017-03-28 10:06 | disposition home or self-care (01) ==
LOC: INTOOBSV 06:52 → F2W 08:38
PROVIDERS: ADMIT Student in an Organized Health Care Education/Training Program; ATTEND Hospitalist
PROC: 3E0337Z Introduction of Electrolytic and Water Balance Substance into Peripheral Vein, Percutaneous Approach (ICD-10-PCS; 2017-03-27)
PROC: 0DTJ4ZZ Resection of Appendix, Percutaneous Endoscopic Approach (ICD-10-PCS; principal; 2017-03-27 12:15)
DX: K35.80 Unspecified acute appendicitis (principal); R79.89 Other specified abnormal findings of blood chemistry; J45.909 Unspecified asthma, uncomplicated; E78.5 Hyperlipidemia, unspecified; E86.9 Volume depletion, unspecified; Z82.49 Family history of ischemic heart disease and other diseases of the circulatory system; R94.31 Abnormal electrocardiogram [ECG] [EKG]
CPT/HCPCS: 44970; 71020; 74177; 93005; 93306; 96361; 96374; 99285; G0378; J1100; J1170; J1335; J1885; J2250; J2405; J2550; J2704; J3010; Q9967

== ENCOUNTER 2017-04-06 02:33 | Inpatient (IN) | payer BC ==
[2017-04-06] MEDS ORDERED: PANTOPRAZOLE SODIUM 40 MG VIAL IVP ONE ×2 (02:55→03:15)
--- NOTE | 2017-04-06 02:55 | EDPHY ---
H & P Stated Complaint: crampy abd pain, heartburn, vomiting blood Time Seen by Provider: 04/06/17 02:46 HPI/ROS: Chief Complaint: Vomiting blood, epigastric pain HPI: 56-year-old male who is 1 1/2 weeks status post appendectomy by Dr. Hawkins. Patient was discharged from the hospital on the 24/09. Since that time he has been having upper abdominal discomfort which feels like reflux type pain. He returned was seen by Dr. Hawkins is PA last Friday and had blood work which at that time was unremarkable. Patient states that after that appointment he has had 3 dark tarry stools. This morning he had worsening nausea and pain. He vomited up a dark clot and then had bright red blood. He has only vomited once. No lightheadedness or fainting. No chest pain or shortness of breath. No diarrhea. He has not had any lower abdominal pain around his surgery site. ROS: 10 point Review of Systems is negative except as noted in the HPI. PMH: Asthma Social History: No smoking, no alcohol, no recreational drug use Family History: non-contributory Physical Exam: Gen: Awake, Alert, No Distress HEENT: Nose: no rhinorrhea Eyes: PERRLA, EOMI Mouth: Moist mucosa Neck: Supple, no JVD Chest: nontender, lungs clear to auscultation Heart: S1, S2 normal, no murmur Abd: Soft, moderate epigastric tenderness, no guarding Back: no CVA tenderness, no midline tenderness Ext: no edema, non-tender Skin: no rash Neuro: CN II-XII intact, Sensation grossly intact, Strength 5/5 in bilateral upper and lower extremities - Personal History Current Tetanus/Diphtheria Vaccine: Yes - Medical/Surgical History Hx Asthma: Yes Hx Chronic Respiratory Disease: No Hx Diabetes: No Hx Cardiac Disease: No Hx Renal Disease: No Hx Cirrhosis: No Hx Alcoholism: No Hx HIV/AIDS: No Hx Splenectomy or Spleen Trauma: No Other PMH: PMHx: asthma. PSHx: appendectomy 03/27/2017 - Social History Smoking Status: Never smoked Constitutional: Initial Vital Signs Temperature (C) 36.3 C 04/06/17 02:38 Heart Rate 109 H 04/06/17 02:38 Respiratory Rate 19 04/06/17 02:38 Blood Pressure 108/70 04/06/17 02:38 O2 Sat (%) 95 04/06/17 02:38 O2 Delivery Mode Room Air Allergies/Adverse Reactions: codeine Allergy (Verified 03/27/17 09:17) Vomiting Home Medications: Medication Instructions Recorded Famotidine [Pepcid 20 MG (*)] 20 mg PO DAILY PRN 03/27/17 Mometasone/Formoterol [Dulera 200 2 puffs IH BID 03/27/17 Mcg/5 Mcg Inhaler] LORAZEPAM 04/06/17 Medical Decision Making ED Course/Re-evaluation: 56-year-old male with upper GI bleed with 1 episode of vomiting and dark tarry stools for the last few days. This is likely secondary to a stress ulcer from his recent hospitalization and surgery. He has had a 4 point drop in his hemoglobin in the last 2 weeks. He is mildly tachycardic here. I will give him Protonix and IV fluids. I have discussed with Dr. Gomez, hospitalist. She will admit to the hospital for further care. She will consult GI in the morning. Patient does not require emergent endoscopy at this time. - Data Points Laboratory Results: Laboratory Results 04/06/17 02:50 04/06/17 02:50 04/06/17 04/06/17 02:50 02:50 WBC 7.89 10^3/uL 10^3/uL (3.80-9.50) RBC 3.47 10^6/uL L 10^6/uL (4.40-6.38) Hgb 10.2 g/dL L g/dL (13.7-17.5) Hct 29.9 % L % (40.0-51.0) MCV 86.2 fL fL (81.5-99.8) MCH 29.4 pg pg (27.9-34.1) MCHC 34.1 g/dL g/dL (32.4-36.7) RDW 13.9 % % (11.5-15.2) Plt Count 424 10^3/uL H 10^3/uL (150-400) MPV 9.7 fL fL (8.7-11.7) Neut % (Auto) 68.1 % % (39.3-74.2) Lymph % (Auto) 14.3 % L % (15.0-45.0) [place] % (Auto) 9.9 % % (4.5-13.0) Eos % (Auto) 6.6 % % (0.6-7.6) Baso % (Auto) 0.6 % % (0.3-1.7) Nucleat RBC Rel Count 0.0 % % (0.0-0.2) Absolute Neuts (auto) 5.37 10^3/uL 10^3/uL (1.70-6.50) Absolute Lymphs (auto) 1.13 10^3/uL 10^3/uL (1.00-3.00) Absolute Monos (auto) 0.78 10^3/uL 10^3/uL (0.30-0.80) Absolute Eos (auto) 0.52 10^3/uL H 10^3/uL (0.03-0.40) Absolute Basos (auto) 0.05 10^3/uL 10^3/uL (0.02-0.10) Absolute Nucleated RBC 0.00 10^3/uL 10^3/uL (0-0.01) Immature Gran % 0.5 % % (0.0-1.1) Immature Gran # 0.04 10^3/uL 10^3/uL (0.00-0.10) Sodium 138 mEq/L mEq/L (134-144) Potassium 3.8 mEq/L mEq/L (3.5-5.2) Chloride 102 mEq/L mEq/L (97-110) Carbon Dioxide 24 mEq/l mEq/l (22-31) Anion Gap 12 mEq/L mEq/L (8-16) BUN 19 mg/dL mg/dL (7-23) Creatinine 0.8 mg/dL mg/dL (0.7-1.3) Estimated GFR > 60 Glucose 121 mg/dL H mg/dL (70-100) Calcium 8.5 mg/dL mg/dL (8.5-10.4) Total Bilirubin 0.7 mg/dL mg/dL (0.1-1.4) AST 37 IU/L IU/L (17-59) ALT 86 IU/L H IU/L (21-72) Alkaline Phosphatase 224 IU/L H IU/L (38-126) Total Protein 5.8 g/dL L g/dL (6.3-8.2) Albumin 2.6 g/dL L g/dL (3.5-5.0) Lipase 653 IU/L H IU/L (23-300) Medications Given: Discontinued Medications Sodium Chloride (Ns) 1,000 mls @ 0 mls/hr IV ONCE ONE; Wide Open PRN Reason: Protocol Stop: 04/06/17 03:24 Last Admin: 04/06/17 03:38 Dose: 1,000 mls Ondansetron HCl (Zofran) 4 mg IVP EDNOW ONE Stop: 04/06/17 03:07 Last Admin: 04/06/17 03:06 Dose: 4 mg Pantoprazole Sodium (Protonix) 40 mg IVP EDNOW ONE Stop: 04/06/17 02:56 Last Admin: 04/06/17 03:21 Dose: 40 mg Pantoprazole Sodium (Protonix) 40 mg IVP EDNOW ONE Stop: 04/06/17 03:16 Last Admin: 04/06/17 03:22 Dose: Not Given Departure - Departure Disposition: [facility] Inpatient Acute Clinical Impression: Upper GI bleed Condition: Fair Referrals: Farrah Hooker MD [Primary Care Provider] - As per Instructions
[2017-04-06] MEDS ORDERED: ONDANSETRON 4 MG/2 ML VIAL ONE (03:01)
[2017-04-06 03:05] LABS: PLATELET COUNT 424 10^3/uL (150-400)
[2017-04-06] MEDS ORDERED: ONDANSETRON 4 MG/2 ML VIAL IVP ONE (03:06)
[2017-04-06] MEDS ORDERED: NS 1,000 ML IV ONE (03:23)
[2017-04-06] MEDS ORDERED: METOCLOPRAMIDE 10 MG TAB PO PRN (05:06)
[2017-04-06] MEDS ORDERED: LORazepam 2 MG/ML INJ IVP PRN (05:06)
[2017-04-06] MEDS ORDERED: ALBUTEROL 3 ML DEYVIAL IH PRN ×2 (05:06→10:51)
[2017-04-06] MEDS ORDERED: ACETAMINOPHEN 650 MG SUPP PR PRN (05:06)
[2017-04-06] MEDS ORDERED: HYDROmorphONE/DILAUDID 2 MG/ML INJ IVP PRN (05:10)
[2017-04-06 06:38] LABS: INR 1.18 (0.83-1.16); PROTIME(PATIENT) 15.2 SEC (12.0-15.0)
[2017-04-06] MEDS: D5W LR 1,000 ML IV SCH ×2 (06:53→20:16)
--- NOTE | 2017-04-06 07:30 | GHP ---
[f rep st] HISTORY AND PHYSICAL DATE OF ADMISSION: 04/06/2017 SOURCE: The patient provides history, appears reliable. His is at bedside and supplements history. CHIEF COMPLAINT: Epigastric pain with hematemesis and melena. HISTORY OF PRESENT ILLNESS: This is a very pleasant, 56-year-old gentleman with past medical history significant for asthma and more recently was hospitalized for acute appendicitis on 03/27/2017. The patient reports that his epigastric pain started some time after Thanksgiving. He has been taking Pepcid AC q.12 hours at home with progressive pain in his epigastric region in the past several days since his discharge following his appendectomy. Patient reports that he had some intractable nausea and vomiting the week prior to his presentation for his appendicitis. He did not have any reports of hematemesis or melena at that time. The patient denies any known history of peptic ulcer disease or been tested for H pylori. There is a family history for peptic ulcer disease. The patient reports, in addition to the epigastric pain, some burning GERD type symptoms that extend proximally, but denies any chest pressure or palpitations. He does have a cough related to his asthma. He denies any fevers or chills. The patient had a one time episode of emesis that had a large clot present. REVIEW OF SYSTEMS: GENERAL: Negative for fevers, chills. SKIN: No rashes, sores. ENT: Patient reports some rhinorrhea ongoing with history of sinusitis status post appropriate antibiotic treatment. EYES: Patient wears glasses. No acute changes in vision. GI: Epigastric cramping in nature, as noted above in HPI. GI reflux, nausea, vomiting, melena. : Patient reports some red urine, but no dysuria. MUSCULOSKELETAL: The patient denies any acute joint pain or myalgias. NEURO: Patient reports a history of headache with sinus infection that has now resolved. He also is reporting a little bit of numbness , tingling in the left lateral proximal leg just over the IT band area. PSYCH: Patient without any anxiety or depression. Remainder of the review of systems is negative except as noted above. ALLERGIES: Codeine. HOME MEDICATIONS: Dulera, dosing of which patient does not know. Lorazepam, Pepcid 20 mg b.i.d. PAST MEDICAL HISTORY: Asthma, GERD, anxiety. PAST SURGICAL HISTORY: Significant for lap appendectomy on 03/27/2017. FAMILY HISTORY: Patient with a history of father with ND at age 46. SOCIAL HISTORY: Patient is . He does not smoke, drink, or do drugs. COR STATUS: Full. The patient desires his , Margot, to act as proxy if needed. PHYSICAL EXAMINATION: VITAL SIGNS: Upon arrival to the emergency department, blood pressure 108/70, heart rate 109, respiratory rate 19, O2 sats 95% on room air with a temperature of 36.3. Current vitals: Blood pressure 108/74, heart rate 97, respiratory rate 16, O2 saturation 93% on room air with temperature 36.5. GENERAL: No acute distress, pleasant, obese adult male, is resting quietly in bed. He does appear chronically ill and fatigued, slightly pale, but awake, oriented, and cooperative. at bedside. HEAD: Normocephalic, atraumatic. EYES: Extraocular muscles are grossly intact. No scleral icterus or conjunctival injection. ENT: Mucous membranes appear slightly dry. No oropharyngeal erythema or exudates. Dentition intact. NECK: Supple. Trachea midline. CV: Regular rate and rhythm. Slightly tachycardic in the low 90s. No murmurs, rubs, or gallops appreciated. ABDOMEN: Obese, soft, nontender to palpation. No rebound, guarding, or masses appreciated. RESPIRATORY: Lungs are clear to auscultation bilaterally. No wheezes, rales, or rhonchi. Patient does have intermittent cough during the interview. MUSCULOSKELETAL: Strength grossly normal. The patient is able to sit up independently. EXTREMITIES: Patient with 2+ pedal pulses bilaterally and symmetric. : No dysuria. No suprapubic tenderness to palpation. No Gordillo catheter in place. NEURO: Grossly nonfocal. No facial drooping. Moves all extremities. Awake, alert, oriented x4. PSYCHIATRIC: Affect is slightly flat but patient is pleasant and cooperative. LABORATORY STUDIES: WBC 7.89, hemoglobin and hematocrit is 10.2 and 29.9, MCV 6.2, platelet count is 424, no bands. PT 16.2, INR 1.18, PTT is 38.8. Sodium 138, potassium 3.8, chloride 102, CO2 24, anion gap 12, BUN 19, creatinine 0.8, GFR greater than 60, glucose 121, calcium 8.5, total bilirubin is 0.7, ALT is 86 , AST is 37, alkaline phosphatase is 224, total protein 5.8, albumin 2.6, lipase 653. ASSESSMENT AND PLAN: A pleasant, 56-year-old gentleman with a recent lap appendectomy for acute appendicitis on the of this month, who now presents with complaints of acute on chronic epigastric pain with an episode of reported hematemesis and melena. 1. Likely upper gastrointestinal bleed. The patient without any further episodes. Differential diagnosis including gastric ulcer, esophageal Luana- Kwok tear, gastritis, less likely arteriovenous malformation. The patient has been given Protonix, which we will continue 40 mg b.i.d. IV. We will consult Gastroenterology later this morning and the patient's hemoglobin and hematocrit with serial labs. The patient is typed and screened and will accept blood products if needed. 2. Epigastric pain, currently pain is improved, not quite resolved. The patient does have multiple medications for his acute pain. 3. Thrombocytosis, likely reactive, in the setting of acute blood loss. 4. Asthma. The patient is with a slight wheeze in the base. Offered nebulizer treatment while awaiting patient's home medications of Dulera, which he is unsure of the dosing but will get from home. 5. Hyperglycemia. Will monitor blood sugars. The patient without previous history of hyperglycemia. We will plan for fasting labs in the morning. 6. Hypoalbuminemia, likely related to patient's recent and acute illness. We will plan to monitor at this time. 7. Elevated lipase, is less than 3 times upper limit of normal and likely related to patient's recent episode of vomiting and/or gastrointestinal bleed. 8. Transaminitis. Slightly elevated ALT and alkaline phosphatase. Will plan to monitor, a.m. liver function tests. 9. No evidence of obstruction on imaging or elevation in hyperbilirubinemia. 10. Fluid, electrolyte, nutrition. Patient will receive D5 LR for supplementation while he is n.p.o. Electrolytes will be monitored and replaced if needed. 11. Prophylaxis. Sequential compression device, holding anticoagulation in a setting of acute bleeding. 12. Cor status is full. Patient desires his to act as proxy if needed. DISPOSITION: The patient has been admitted to observation on the medical floor pending further evaluation and recommendations by GI service. He will need consultation later this morning. The patient without any active hematemesis. /[id number]/MODL MTDD
[2017-04-06] MEDS ORDERED: PANTOPRAZOLE SODIUM 40 MG VIAL IVP SCH (09:00)
[2017-04-06] MEDS ORDERED: LR 1,000 ML IV ONE (09:59)
--- NOTE | 2017-04-06 10:12 | PDANEPAE ---
ANE History of Present Illness 56 yo for egd, ugi bleed ANE Past Medical History - Cardiovascular History Hx Hypertension: No Hx Arrhythmias: No Hx Chest Pain: No Hx Coronary Artery / Peripheral Vascular Disease: No Hx CHF / Valvular Disease: No Hx Palpitations: No - Pulmonary History Hx COPD: No Hx Asthma/Reactive Airway Disease: Yes Hx Recent Upper Respiratory Infection: Yes Hx Oxygen in Use at Home: No Hx Sleep Apnea: No Sleep Apnea Screening Result - Last Documented: Positive - Endocrine History Hx Diabetes: No - Chronic Pain History Chronic Pain: No ANE Review of Systems Review of Systems: - Exercise capacity METS (RN): 4 METS ANE Patient History - Allergies Allergies/Adverse Reactions: codeine Allergy (Intermediate, Verified 04/06/17 08:29) Vomiting - Home Medications Home medications: home medication list seen and reviewed Home Medications: Famotidine [Pepcid 20 MG (*)] 20 mg PO BID 03/27/17 [Last Taken 04/05/17] Mometasone/Formoterol [Dulera 200 Mcg/5 Mcg Inhaler] 2 puffs IH BID 03/27/17 [ Last Taken 04/05/17] Acetaminophen [Tylenol ES 500 mg (*)] 500 mg PO Q6 PRN 04/06/17 [Last Taken Unknown] Ibuprofen [Motrin (*)] 400 mg PO Q8 PRN 04/06/17 [Last Taken Unknown] LORazepam [Ativan (*)] 1 mg PO HS 04/06/17 [Last Taken 04/05/17] - NPO status NPO Since - Liquids (Date): 04/05/17 NPO Since - Solids (Date): 04/05/17 - Anes Hx Anes Hx: no prior problems - Smoking Hx Smoking Status: Never smoked ANE Labs/Vital Signs - Labs Result Diagrams: 04/06/17 09:39 04/06/17 02:50 - Vital Signs Blood Pressure: 112/70 Heart Rate: 92 Respiratory Rate: 16 O2 Sat (%): 91 Height: 5 ft 8 in Weight: 95.254 kg ANE Physical Exam - Airway Neck exam: FROM Mallampati Score: Class 2 Mouth exam: normal dental/mouth exam - Pulmonary Pulmonary: no respiratory distress - Cardiovascular Cardiovascular: regular rate and rhythym ANE Anesthesia Plan Anesthesia Plan: general endotracheal anesthesia
[2017-04-06] MEDS ORDERED: REMIFENTANIL HCL 1 MG VIAL ONE (10:13)
[2017-04-06] MEDS ORDERED: fentaNYL 100 MCG/2 ML INJ ONE (10:13)
[2017-04-06] MEDS ORDERED: PROPOFOL/EMULSION 500 MG/50 ML BOTTLE IV ONE (10:13)
[2017-04-06] MEDS ORDERED: EPINEPHrine 1 MG/10 ML SYR IVP ONE (10:16)
--- NOTE | 2017-04-06 10:48 | GIREPORT ---
[facility] Surgical Services - Endoscopy Department Patient Name: Gentry Mock Procedure Date: 04/06/2017 9:57 AM Patient Type: Inpatient Attending MD/ ER Physician: Denzel Rey MD Procedure: Upper GI endoscopy Indications: Hematemesis, Melena Patient Profile: 56 year old male presents for evaluation of hematemesis and melantoic s tools. Providers: Denzel Rey MD Medicines: General Anesthesia Complications: No immediate complications. Estimated blood loss: Minimal. Description of Procedure: After obtaining informed consent, the endoscope was passed under direct vision. Throughout the procedure, the patient's blood pressure, pulse, and oxygen saturations were monitored continuously. The Endoscope was intro duced through the mouth, and advanced to the second part of duodenum. The [facility] er GI endoscopy was accomplished without difficulty. The patient tolerated e procedure well. Findings: The examined esophagus was normal. Diffuse nodular,erythematous, slightly exophytic mucosa with an was fou nd in the entire examined stomach. Blood clots were seen in several areas. No visible vessel noted. Several small 1cm clean based ulcers seen. The fu ndus could not be visualized due to blood clots. Multiple biopsies taken. Pa rt of specimens placed in flow cytometry. Nodular mucosa was found in the duodenal bulb. The second portion of th e duodenum was normal in appearance. Estimated Blood Loss: Estimated blood loss was minimal. Post Op Diagnosis: - Normal esophagus. - Nodular mucosa in the entire stomach. Biopsies taken. - Nodular mucosa in the duodenal bulb. - No specimens collected. - Etiology? Lymphoma versus other? Await biopsy results. Recommendation: - Return patient to [facility] for [facility] care. - Await pathology results. - PPI therapy with IV infusion. - CT scan of the abdomen/pelvis/chest with IV and PO contrast. - Thank you for allowing me to participate in the care of your patient. Attending Participation: I personally performed the entire procedure. Denzel Rey MD Denzel Rey MD 04/06/2017 10:47:40 AM This report has been signed electronicallyDenzel Rey MD Number of Addenda: 0 Note Initiated On: 04/06/2017 9:57 AM [email or web address]
[2017-04-06] MEDS ORDERED: NALOXONE HCL 0.4 MG/ML INJ IVP PRN (10:51)
[2017-04-06] MEDS ORDERED: fentaNYL 100 MCG/2 ML INJ IVP PRN (10:51)
[2017-04-06] MEDS ORDERED: ONDANSETRON 4 MG/2 ML VIAL IVP PRN (10:51)
--- NOTE | 2017-04-06 11:02 | POSTANESTH ---
Post Anesthetic Evaluation Cardiovascular Status: Normal, Stable Respiratory Status: Tx Decrease in SpO2 Level of Consciousness/Mental Status: Can Participate in Eval Pain Control: Adequate, Prn Tx Ordered Nausea/Vomiting Control: Adequate, Prn Tx Ordered Complications Possibly Related to Anesthesia: None Noted
[2017-04-06] MEDS ORDERED: ALBUTEROL 3 ML DEYVIAL ONE (11:12)
--- NOTE | 2017-04-06 11:23 | HOSPPROG ---
Hospitalist Progress Note Assessment/Plan: Patient is a 56-year-old gentleman who was recently hospitalized for acute appendicitis on March 27. He started having epigastric pain after Thanksgiving and has been taking Pepcid frequently he had some intractable nausea and vomiting 1 week prior to his presentation of his appendicitis. I reviewed his care with Dr. Rey who brought him down for endoscopy. After reviewing his findings I will get a CT of his chest and abdomen and pelvis and also will check an LDH. *anemia -reviewed the results of the upper endoscopy with Dr. Rey, it showed a nodular mucosa in the entire stomach -biopsies pending -he will review the CT of the abdomen in addition -subsequently a CT of the abdomen and pelvis and CT of the chest were all performed. In the abdomen it showed uncomplicated pancreatitis, there is a new small reactive subcapsular splenic effusion. He has a long segment of narrowed bowel. * concern for parenchymal and fissural nodules in the left upper lobe which one is centrally necrotic in the other is ground-glass -curb sided pulmonology, likely this is benign, nodules are too small to biopsy -recommendation is to get a repeat CT scan in 3 months -check for aspergillus * epigastric pain -cont PPI gtt infusion * hyperglycemia * transaminitis *Plan: Kvng hasn't been able to eat and continues to be nauseated, needs further evaluation of anemia. This will make him IP stay requiring another midnight stay for further evaluation >40 minutes caring, talking w the patient and his family, coordinating his care today Subjective: Kvng is feeling poorly, still having nausea. Objective: Vital Signs Temp Pulse Resp BP Pulse Ox 37.0 C 90 20 99/68 L 98 04/06/17 10:56 04/06/17 10:56 04/06/17 10:56 04/06/17 10:56 04/06/17 10:56 Laboratory Results 04/06/17 09:39 04/05/17 04/06/17 04/07/17 05:59 05:59 05:59 Intake Total 1020 115 Balance 1020 115 PT 15.2 SEC (12.0-15.0) H 04/06/17 03:40 INR 1.18 (0.83-1.16) H 04/06/17 03:40 - Physical Exam Constitutional: No no apparent distress Eyes: PERRL Ears, Nose, Mouth, Throat: hearing normal Respiratory: no respiratory distress Skin: warm, No normal color (pale) Musculoskeletal: full muscle strength Neurologic: AAOx3 Psychiatric: interacting appropriately ICD10 Worksheet Patient Problems: Problems Problem Status Onset Upper GI bleed Acute Abdominal pain Acute Appendicitis Acute Dehydration Acute Elevated lipase Acute Elevated troponin Acute Vomiting Acute
--- NOTE | 2017-04-06 12:35 | GCON ---
[f rep st] CONSULTATION DATE OF CONSULTATION: 04/06/2017 REFERRING PHYSICIAN: Tarah Hein NP REASON FOR CONSULTATION: Hematemesis/melanotic stools. CHIEF COMPLAINT: Epigastric pain/Hematemesis/Melanotic stools. HISTORY OF PRESENT ILLNESS: The patient is a 56-year-old male with a history of asthma who presents to [facility] with complaints of hematemesis and black tarry stools. Gentry has been complaining of a crampy pain in the mid epigastric area which has been present for multiple weeks. This pain would often last minutes and was alleviated with oral intake. He denies any exacerbating factors. The patient was recently hospitalized for acute appendicitis on 03/27/2017. Since then, he has been taking ibuprofen for postsurgical pain. During this time period, his pain in the epigastric area became worse and for the last week he has had several bowel movements which were black and tarry. He also had complaints of nausea and had an episode of hematemesis. I am being asked by Tarah Hein NP to evaluate the patient in consultation regarding his upper GI bleed. PAST MEDICAL HISTORY: Asthma on a daily inhaler, gastroesophageal reflux disease, anxiety. PAST SURGICAL HISTORY: Laparoscopic appendectomy on 03/27/2017. FAMILY HISTORY: Mom had a peptic ulcer. Father had NM at age 46. SOCIAL: No significant tobacco or alcohol use. . ALLERGIES: Codeine. MEDICATIONS: Dulera, lorazepam, Pepcid 20 mg twice daily. REVIEW OF SYSTEMS: A 14-point comprehensive review of systems was asked. Pertinent positives and negatives per HPI. PHYSICAL EXAMINATION: VITAL SIGNS: Temperature 36.7, respirations 16, blood pressure 112/72, heart rate 92. GENERAL: Awake, alert, oriented x3. No distress. HEENT: Anicteric. Moist mucosa. NECK: No JVD. CARDIOVASCULAR: Regular rate and rhythm. Positive S1, S2. No murmurs, rubs, or gallops appreciated. LUNGS: Clear to auscultation bilaterally with no wheezes, rales or rhonchi. ABDOMEN: Soft, nontender, nondistended. Positive bowel sounds. No guarding or rebound. EXTREMITIES: No clubbing, cyanosis, edema. NEUROLOGIC : 2 through 12 grossly intact. PSYCH: Normal affect. SKIN: No rash. No icterus. LYMPH: No obvious lymphadenopathy noted. LABORATORY DATA: Hemoglobin 9.3, hematocrit 27.7, WBC 7.89, platelets 424. INR 1.18. Sodium 138, potassium 3.8, chloride 102, bicarb 24, BUN 19, creatinine 0.8, total bilirubin 0.7. AST 37, ALT 86, alkaline phosphatase 224. ASSESSMENT AND PLAN: 1. Gastrointestinal bleed-upper. At this time, I recommend to proceed with upper endoscopy to delineate the cause of his symptoms. The risks, benefits, and alternatives of the procedure were discussed in great detail with the patient. The risk of infection, bleeding, perforation, sedation were discussed. Due to his asthma and daily use of inhaler, he is at increased risk of sedation. Will recommend anesthesiology support in the face of asthma as well as acute gastrointestinal bleed. Would recommend PPI infusion and n.p.o. status. 2. Increased LFTs-cholestatic? Will recommend to monitor. 3. History of asthma. Thank you very much for this consultation. /[id number]/MODL MTDD
[2017-04-06] MEDS: PANTOPRAZOLE SODIUM 80 MG in NS 100 ML IV SCH ×2 (13:34→22:34)
[2017-04-06] MEDS: (Mometasone/Formoterol [Dulera 200 Mcg/5 Mcg Inhaler] 2 PUFFS) IH SCH ×2 (13:38→18:32)
[2017-04-06] MEDS ORDERED: IOPAMIDOL (ISOVUE-300) 100 ML BTL ONE (13:50)
--- NOTE | 2017-04-06 15:53 | ASMTCMCOM ---
CM Note CM Note Notes: 56 year old male admitted for Upper GI bleed. He has a hx of Asthma and Appendicitis. Not anticipating that this patient will have discharge needs. Date Signed: 04/06/2017 03:53 PM Electronically Signed By:Yazmin Donovan LCSW
[2017-04-06] MEDS: ACETAMINOPHEN 325 MG TAB PO PRN (17:30)
--- NOTE | 2017-04-06 17:46 | PDMN ---
Medical Necessity Medical necessity: C/M review: patient meets INPT criteria under MCG M-250 Pancreatitis, M-35 Anemia, iron deficiency of unspecified: Acute and persistent - anemia of unclear etiology, 04/06/2017 EGD with biopsies showed a nodular mucosa in the entire stomach, biopsy results pending, Hgb 10.2, 9.3, Hct 29.9, 27.7, acute and persistent pancreatitis with new small subcapsular splenic effusion, long segment of narrowed bowel, on CT, Lipase 653, INR 1.18, concern for parenchymal and fussural nodules in TIARA which one is centrally necrotic and the other is ground glass, too small to biopsy, likely benign, nausea, poor oral intake requiring Aspergillis serology lab check, ongoing IV Pantoprazole infusion, IV D5LR 100 ml/hr., CBC / BMP monitoring, comorbid 2016 observation status hospitalization for acute appendicitis treated with surgery - laparoscopic appendectomy, 03/28/2017 discharge date. 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
[2017-04-06] MEDS: LORazepam 1 MG TAB PO SCH (21:13)
[2017-04-07 05:26] LABS: PLATELET COUNT 381 10^3/uL (150-400)
[2017-04-07] MEDS: D5W LR 1,000 ML IV SCH ×2 (05:27→16:54)
[2017-04-07] MEDS: ACETAMINOPHEN 325 MG TAB PO PRN (06:21)
[2017-04-07] MEDS: PANTOPRAZOLE SODIUM 80 MG in NS 100 ML IV SCH ×2 (08:36→16:55)
[2017-04-07] MEDS: (Mometasone/Formoterol [Dulera 200 Mcg/5 Mcg Inhaler] 2 PUFFS) IH SCH ×2 (09:19→19:54)
--- NOTE | 2017-04-07 13:53 | SOAPPROG ---
[facility] Progress Note Assessment/Plan: Assessment: Plan: 04/07/17 13:42 A/P 1. GI bleed- upper. S/p EGD with carpet lesion with ulcerations throughout most of the stomach. Multiple biopsies taken. Lymphoma versus other? Await biopsy results. Recommend to continue PPI infusion. Monitor H/H 2. Abdominal pain- epigastric. Occurs only when eating. Suspect secondary to stomach lesion. Not consistent with pancreatitis. 3. Abnormal imaging- questionable bowel stricture? Recommend colonoscopy as outpatient. R/b/a discussed with patient. 4. Increased LFTs- will monitor. Subjective: cc: Follow up GI bleed 5 BMS since last night. Black. Significant complaints of epigastric pain with oral intake. Objective: Vital Signs Temp Pulse Resp BP Pulse Ox 36.7 C 77 16 106/65 96 04/07/17 11:37 04/07/17 11:37 04/07/17 11:37 04/07/17 11:37 04/07/17 11:37 Laboratory Results 04/07/17 10:35 04/07/17 04:22 04/06/17 04/07/17 04/08/17 05:59 05:59 05:59 Intake Total 2352 Balance 2352 PT 15.2 SEC (12.0-15.0) H 04/06/17 03:40 INR 1.18 (0.83-1.16) H 04/06/17 03:40 Physical Exam - Physical Exam General Appearance: alert, no apparent distress EENT: No scleral icterus (R), No scleral icterus (L) Respiratory: lungs clear, normal breath sounds, No rales, No rhonchi, No stridor Cardiac/Chest: regular rate, rhythm, No bradycardia, No tachycardia, No diastolic murmur, No systolic murmur Abdomen: soft, No non-tender (in midepigastrium), No distended, No guarding, No rebound Skin: normal color, warm/dry Neuro/Psych: normal mood/affect, oriented x 3, 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
--- NOTE | 2017-04-07 14:40 | HOSPPROG ---
Hospitalist Progress Note Assessment/Plan: Patient is a 56-year-old gentleman who was recently hospitalized for acute appendicitis on March 27. He started having epigastric pain after Thanksgiving and has been taking Pepcid frequently he had some intractable nausea and vomiting 1 week prior to his presentation of his appendicitis. *upper GI bleed -s/p EGD, patient has a carpet lesion throughout his stomach -biopsies pending -possible bowel stricture/will need OP colonoscopy -patient cont to have multiple black dark stools * concern for parenchymal and fissural nodules in the left upper lobe which one is centrally necrotic in the other is ground-glass -curb sided pulmonology, likely this is benign, nodules are too small to biopsy -recommendation is to get a repeat CT scan in 3 months -check for aspergillus/lab is pending * epigastric pain -cont PPI gtt infusion -trial of k pad * hyperglycemia -stress induced, also has D5 in fluids * transaminitis -better today *Plan: cont clear liquid diet, patient having multiple liquidy dark stools, get repeat h and h in a.m., prn IV pain meds Subjective: Kvng is having pain in the abdomen with clear liquids, feels very weak and tired. Objective: Vital Signs Temp Pulse Resp BP Pulse Ox 36.7 C 77 16 106/65 96 04/07/17 11:37 04/07/17 11:37 04/07/17 11:37 04/07/17 11:37 04/07/17 11:37 Laboratory Results 04/07/17 10:35 04/07/17 04:22 04/06/17 04/07/17 04/08/17 05:59 05:59 05:59 Intake Total 2352 Balance 2352 PT 15.2 SEC (12.0-15.0) H 04/06/17 03:40 INR 1.18 (0.83-1.16) H 04/06/17 03:40 - Physical Exam Constitutional: uncomfortable Eyes: PERRL Ears, Nose, Mouth, Throat: hearing normal Cardiovascular: regular rate and rhythym Respiratory: no respiratory distress Gastrointestinal: normoactive bowel sounds, no palpable masses Skin: warm, No normal color (pale) Neurologic: AAOx3 Psychiatric: interacting appropriately ICD10 Worksheet Patient Problems: Problems Problem Status Onset Upper GI bleed Acute Abdominal pain Acute Appendicitis Acute Dehydration Acute Elevated lipase Acute Elevated troponin Acute Vomiting Acute
[2017-04-07] MEDS: ONDANSETRON 4 MG/2 ML VIAL IVP PRN (20:37)
[2017-04-07] MEDS: LORazepam 1 MG TAB PO SCH (20:44)
[2017-04-08] MEDS: PANTOPRAZOLE SODIUM 80 MG in NS 100 ML IV SCH ×2 (01:38→16:35)
[2017-04-08] MEDS: D5W LR 1,000 ML IV SCH ×2 (03:02→17:47)
--- NOTE | 2017-04-08 08:53 | CPEKG ---
Heart Rate: 81 RR Interval: 741 P-R Interval: 164 QRSD Interval: 94 QT Interval: 372 QTC Interval: 432 P [place]: 31 QRS [place]: -42 T Wave [place]: -45 EKG Severity - ABNORMAL ECG - EKG Impression: SINUS RHYTHM EKG Impression: MULTIPLE ATRIAL PREMATURE COMPLEXES EKG Impression: LEFT ANTERIOR FASCICULAR BLOCK EKG Impression: BORDERLINE T ABNORMALITIES, DIFFUSE LEADS Electronically Signed By: Bandar Ku 08-Apr-2017 12:37:54
[2017-04-08] MEDS: (Mometasone/Formoterol [Dulera 200 Mcg/5 Mcg Inhaler] 2 PUFFS) IH SCH ×2 (10:21→19:36)
[2017-04-08] MEDS ORDERED: FUROSEMIDE 20 MG/2 ML VIAL IVP ONE (13:18)
--- NOTE | 2017-04-08 15:11 | SOAPPROG ---
[facility] Progress Note Assessment/Plan: Assessment: Plan: 04/07/17 13:42 A/P 1. GI bleed- upper. S/p EGD with carpet lesion with ulcerations throughout most of the stomach. Multiple biopsies taken. Lymphoma versus other? Await biopsy results. Recommend to continue PPI infusion. Monitor H/H 2. Abdominal pain- epigastric. Occurs only when eating. Suspect secondary to stomach lesion. Not consistent with pancreatitis. 3. Abnormal imaging- questionable bowel stricture? Recommend colonoscopy as outpatient. R/b/a discussed with patient. 4. Increased LFTs- will monitor. 04/08/17 15:03 A/P 1. GI bleed- upper. Suspect oozing from gastric lesions. Biopsies pending. I called down to pathology today for an update but they have not reviewed the slides yet. Clinically does not appear to be actively bleeding. Did have drop in Hemoglobin this am. Continue PPI infusion. Will follow. 2. Abdominal pain - epigastric. Suspect secondary to gastric lesion. Will start a trial of Carafate. 3. Increased LFTs- will monitor. Subjective: cc: Follow up GI bleed No significant bowel movements. significant epigastric pain on any oral intake. Objective: Vital Signs Temp Pulse Resp BP Pulse Ox 36.7 C 88 16 112/76 99 04/08/17 11:56 04/08/17 11:56 04/08/17 11:56 04/08/17 11:56 04/08/17 11:56 Laboratory Results 04/08/17 04:28 04/07/17 04:22 04/07/17 04/08/17 04/09/17 05:59 05:59 05:59 Intake Total 2352 1200 1358 Balance 2352 1200 1358 PT 15.2 SEC (12.0-15.0) H 04/06/17 03:40 INR 1.18 (0.83-1.16) H 04/06/17 03:40 Physical Exam - Physical Exam General Appearance: alert, mild distress EENT: No scleral icterus (R), No scleral icterus (L) Respiratory: lungs clear, normal breath sounds, No rales, No rhonchi Cardiac/Chest: regular rate, rhythm, No bradycardia, No tachycardia, No diastolic murmur, No systolic murmur Abdomen: non-tender, soft, No guarding, No rebound Skin: normal color, warm/dry Neuro/Psych: normal mood/affect, oriented x 3, 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
--- NOTE | 2017-04-08 16:22 | ASMTCMCOM ---
CM Note CM Note Notes: 04/08/2017 Case Management Note Reviewed chart. There are no PT or OT evals ordered at this time. There are no case management d/c needs identfied d/t marital status, employment status and activity levels prior to admission. Case Management d/c poc: anticipating independent with follow up as directed. Case Management available if needs change. Date Signed: 04/08/2017 04:22 PM Electronically Signed By:Ruthie Dale RN
--- NOTE | 2017-04-08 16:22 | HOSPPROG ---
Hospitalist Progress Note Assessment/Plan: Patient is a 56-year-old gentleman who was recently hospitalized for acute appendicitis on March 27. He started having epigastric pain after Thanksgiving and has been taking Pepcid frequently he had some intractable nausea and vomiting 1 week prior to his presentation of his appendicitis. *upper GI bleed -s/p EGD, patient has a carpet lesion throughout his stomach -biopsies pending -possible bowel stricture/will need OP colonoscopy -patient cont to have multiple black dark stools *ABLA -two units of prbc's -will give dose of Lasix in between -recheck labs this evening to ensure he isn't bleeding *Arrhythmia/likely SVT -likely due to low hgb/hct -will tx to PCU for closer monitoring -patient overall asymptomatic * concern for parenchymal, fissural nodules in the left upper lobe which (one is centrally necrotic in the other is ground-glass) -curb sided pulmonology, likely this is benign, nodules are too small to biopsy -recommendation is to get a repeat CT scan in 3 months -check for aspergillus/lab is pending * epigastric pain -cont PPI gtt infusion -having difficulty w eating -carafate ordered * hyperglycemia -stress induced, also has D5 in fluids * transaminitis -better *Plan: will transfer to PCU/Dr Grajeda will see Kvng tomorrow. Patient's is very involved and likes frequent updates. Subjective: Kvng is c/o swelling in hands. Objective: Vital Signs Temp Pulse Resp BP Pulse Ox 36.6 C 87 23 H 117/84 H 97 04/08/17 16:00 04/08/17 16:00 04/08/17 16:00 04/08/17 16:00 04/08/17 16:00 Laboratory Results 04/08/17 04:28 04/07/17 04:22 04/07/17 04/08/17 04/09/17 05:59 05:59 05:59 Intake Total 2352 1200 1358 Balance 2352 1200 1358 PT 15.2 SEC (12.0-15.0) H 04/06/17 03:40 INR 1.18 (0.83-1.16) H 04/06/17 03:40 - Physical Exam Constitutional: appears nourished, not in pain Eyes: PERRL Ears, Nose, Mouth, Throat: hearing normal Cardiovascular: regular rate and rhythym, other (extra beats) Respiratory: no respiratory distress Gastrointestinal: soft, non-tender abdomen Skin: warm, No normal color (pale) Musculoskeletal: full muscle strength Neurologic: AAOx3 Psychiatric: interacting appropriately, not anxious ICD10 Worksheet Patient Problems: Problems Problem Status Onset Upper GI bleed Acute Abdominal pain Acute Appendicitis Acute Dehydration Acute Elevated lipase Acute Elevated troponin Acute Vomiting Acute
[2017-04-08] MEDS: SUCRALFATE 1 GM/10 ML UDCUP PO SCH ×2 (17:57→21:57)
[2017-04-08] MEDS: ONDANSETRON 4 MG/2 ML VIAL IVP PRN ×2 (17:57→21:55)
[2017-04-08] MEDS: LORazepam 1 MG TAB PO SCH (21:57)
[2017-04-09] MEDS: PANTOPRAZOLE SODIUM 80 MG in NS 100 ML IV SCH ×3 (00:03→19:43)
[2017-04-09 04:29] LABS: PLATELET COUNT 381 10^3/uL (150-400)
[2017-04-09] MEDS: D5W LR 1,000 ML IV SCH (04:49)
[2017-04-09] MEDS: SUCRALFATE 1 GM/10 ML UDCUP PO SCH ×4 (08:02→20:45)
--- NOTE | 2017-04-09 10:05 | SOAPPROG ---
[facility] Progress Note Assessment/Plan: Assessment: Plan: 04/07/17 13:42 A/P 1. GI bleed- upper. S/p EGD with carpet lesion with ulcerations throughout most of the stomach. Multiple biopsies taken. Lymphoma versus other? Await biopsy results. Recommend to continue PPI infusion. Monitor H/H 2. Abdominal pain- epigastric. Occurs only when eating. Suspect secondary to stomach lesion. Not consistent with pancreatitis. 3. Abnormal imaging- questionable bowel stricture? Recommend colonoscopy as outpatient. R/b/a discussed with patient. 4. Increased LFTs- will monitor. 04/08/17 15:03 A/P 1. GI bleed- upper. Suspect oozing from gastric lesions. Biopsies pending. I called down to pathology today for an update but they have not reviewed the slides yet. Clinically does not appear to be actively bleeding. Did have drop in Hemoglobin this am. Continue PPI infusion. Will follow. 2. Abdominal pain - epigastric. Suspect secondary to gastric lesion. Will start a trial of Carafate. 3. Increased LFTs- will monitor. 04/09/17 10:03 A/P 1. GI bleed- upper. S/p EGD with carpet like lesion seen with ulcerations. Biopsies pending but preliminary report shows significant inflammation. Final report this afternoon? Continue PPI infusion. 2. Abdominal pain- Improved on Carafate. Recommend trial of bentyl. Will try to advance diet soon. 3. Increased LFTs Subjective: cc: Follow up GI bleed No recent BM. Still complaining of abdominal pain but improved. Objective: Vital Signs Temp Pulse Resp BP Pulse Ox 36.6 C 81 18 103/73 98 04/09/17 07:40 04/09/17 07:40 04/09/17 07:40 04/09/17 07:40 04/09/17 07:40 Laboratory Results 04/09/17 03:53 04/09/17 03:53 04/08/17 04/09/17 04/10/17 05:59 05:59 05:59 Intake Total 1200 3193 Output Total 500 300 Balance 1200 2693 -300 PT 15.2 SEC (12.0-15.0) H 04/06/17 03:40 INR 1.18 (0.83-1.16) H 04/06/17 03:40 Physical Exam - Physical Exam General Appearance: alert, no apparent distress EENT: No scleral icterus (R), No scleral icterus (L) Respiratory: lungs clear, normal breath sounds, No rales, No rhonchi Cardiac/Chest: regular rate, rhythm Abdomen: non-tender, soft, No distended, No guarding Skin: normal color, warm/dry Neuro/Psych: normal mood/affect, oriented x 3, 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
[2017-04-09] MEDS: (Mometasone/Formoterol [Dulera 200 Mcg/5 Mcg Inhaler] 2 PUFFS) IH SCH ×2 (10:12→19:43)
[2017-04-09] MEDS ORDERED: HYDROmorphONE/DILAUDID 1 MG/ML INJ IVP PRN (16:30)
--- NOTE | 2017-04-09 17:35 | HOSPPROG ---
Hospitalist Progress Note Assessment/Plan: * UGIB -bleeding nodular lesions on EGD - path pending -IV protonix gtt * Recent appendicitis -path shows non-caseating granulomas - AFB/fungus negative -? yersinia - check stool PCR * Necrotic pulmonary nodules -check BC - rule out septic emboli * Pancreatitis * Bowel narrowing - ileum/sigmoid -needs colonoscopy - consider as inpatient if diagnosis still unclear * Acute blood loss anemia -continue follow Hct * SVT - without recurrence -check ECHO, TSH Subjective: No stool today Objective: Vital Signs Temp Pulse Resp BP Pulse Ox 36.9 C 83 17 100/63 93 04/09/17 15:40 04/09/17 15:40 04/09/17 15:40 04/09/17 15:40 04/09/17 15:40 Laboratory Results 04/09/17 03:53 04/09/17 03:53 04/08/17 04/09/17 04/10/17 05:59 05:59 05:59 Intake Total 1200 3193 Output Total 500 600 Balance 1200 2693 -600 PT 15.2 SEC (12.0-15.0) H 04/06/17 03:40 INR 1.18 (0.83-1.16) H 04/06/17 03:40 EKG viewed, my personal interpretation is - NSR, diffuse TW flat CT chest - necrotic pulmonary nodules - Physical Exam Constitutional: no apparent distress, appears nourished, not in pain Cardiovascular: regular rate and rhythym, no murmur, rub, or gallop Respiratory: no respiratory distress, no rales or rhonchi, clear to auscultation Gastrointestinal: normoactive bowel sounds, soft, non-tender abdomen, no palpable masses Skin: no rashes or abrasions, no fluctuance, no induration Neurologic: AAOx3, sensation intact bilaterally Psychiatric: interacting appropriately, not anxious, not encephalopathic, thought process linear ICD10 Worksheet Patient Problems: Problems Problem Status Onset Upper GI bleed Acute Abdominal pain Acute Appendicitis Acute Dehydration Acute Elevated lipase Acute Elevated troponin Acute Vomiting Acute
[2017-04-09] MEDS: DICYCLOMINE 20 MG TAB PO SCH (20:46)
[2017-04-09] MEDS: LORazepam 1 MG TAB PO SCH (20:46)
[2017-04-10] MEDS: D5W LR 1,000 ML IV SCH ×2 (02:11→23:33)
[2017-04-10] MEDS: PANTOPRAZOLE SODIUM 80 MG in NS 100 ML IV SCH (05:41)
[2017-04-10 06:05] LABS: PLATELET COUNT 384 10^3/uL (150-400)
[2017-04-10] MEDS: SUCRALFATE 1 GM/10 ML UDCUP PO SCH ×4 (08:25→19:57)
[2017-04-10] MEDS: DICYCLOMINE 20 MG TAB PO SCH ×2 (09:17→20:38)
[2017-04-10] MEDS: (Mometasone/Formoterol [Dulera 200 Mcg/5 Mcg Inhaler] 2 PUFFS) IH SCH ×2 (09:18→19:56)
[2017-04-10] MEDS ORDERED: TUBERCULIN (PPD) 5 TU/0.1 ML SYRINGE ID ONE (15:13)
--- NOTE | 2017-04-10 18:30 | HOSPPROG ---
Hospitalist Progress Note Assessment/Plan: * UGIB -bleeding nodular lesions on EGD - prelim path negative - just inflammation -unusual appearance not previously seen by GI or pathology -IV protonix BID -not tolerating any PO, not even liquids * Recent appendicitis -path shows non-caseating granulomas - AFB/fungus negative -? yersinia - but stool PCR negative likely rule this out * Necrotic pulmonary nodules -check BC - rule out septic emboli * Pancreatitis - idiopathic -? autoimmune -check MRCP -check IgG4 * Bowel narrowing - ileum/sigmoid -needs colonoscopy - consider as inpatient if diagnosis still unclear -re-review CT with radiology - not really that significant -could not tolerate colonoscopy prep at this time * Acute blood loss anemia -continue follow Hct * SVT - without recurrence -recent ECHO normal * Elevated ESR 94 - suggests underlying chronic infection vs. autoimmune -perplexing constellation of findings (GI nodules, pancreatitis, lung nodules ) -appreciate ID input -send autoimmune work-up -consider empiric steroids if infection ruled out Subjective: Can't even tolerated 1/2 glass of liquid. Taking almost nothing in. Objective: Vital Signs Temp Pulse Resp BP Pulse Ox 36.7 C 89 16 126/83 H 94 04/10/17 16:00 04/10/17 16:00 04/10/17 16:00 04/10/17 16:00 04/10/17 16:00 Microbiology 04/10/17 11:10 Gastrointestinal Tract Panel (PCR) - Final Stool No Organism Detected Laboratory Results 04/10/17 05:40 04/10/17 05:40 04/09/17 04/10/17 04/11/17 05:59 05:59 05:59 Intake Total 3193 2930 Output Total 500 1200 1100 Balance 2693 1730 -1100 PT 15.2 SEC (12.0-15.0) H 04/06/17 03:40 INR 1.18 (0.83-1.16) H 04/06/17 03:40 d/w Dr. Cortes and Dr. Rey - perplexing case - Physical Exam Constitutional: no apparent distress, appears nourished, not in pain Cardiovascular: regular rate and rhythym, no murmur, rub, or gallop Respiratory: no respiratory distress, no rales or rhonchi, clear to auscultation Gastrointestinal: normoactive bowel sounds, soft, non-tender abdomen, no palpable masses Skin: no rashes or abrasions, no fluctuance, no induration Neurologic: AAOx3, sensation intact bilaterally Psychiatric: interacting appropriately, not anxious, not encephalopathic, thought process linear ICD10 Worksheet Patient Problems: Problems Problem Status Onset Upper GI bleed Acute Abdominal pain Acute Appendicitis Acute Dehydration Acute Elevated lipase Acute Elevated troponin Acute Vomiting Acute
[2017-04-10] MEDS: PANTOPRAZOLE SODIUM 40 MG VIAL IVP SCH (19:57)
[2017-04-10] MEDS: LORazepam 1 MG TAB PO SCH (20:38)
--- NOTE | 2017-04-10 20:44 | GCON ---
[f rep st] CONSULTATION DATE OF CONSULTATION: 04/10/2017 REFERRING PHYSICIAN: Trista Grajeda MD REASON FOR CONSULTATION: Granulomatous histopathology on appendix specimen with question of Yersinia enterocolitica as etiology. HISTORY OF PRESENT ILLNESS: Patient is a 56-year-old male with a past medical history of asthma and gluten intolerance, who was hospitalized on 03/27/2017 for acute appendicitis. He underwent appendec antoine at that point in time. Pathologic specimen histopathologically showed evidence of acute appendi citis with chronic inflammatory changes including a few noncaseating granulomas. Special stains for AFB and fungi were negative and concern regarding either Crohn disease or Yersinia infection were gomez sed based on the granulomatous nature of his histopathology. The patient notes developing cold-like symptoms in early February which exacerbated his asthma. He was treated supportively at that time an d describes obtaining a short course of steroids for his reactive airway disease. Prior to presentin g with his appendicitis, he had developed epigastric pain with nausea and vomiting. He was unable to tolerate any oral intake at that time. Laboratory findings at that admission revealed an elevated w mathew blood cell count of 14.6, as well as an elevated lipase value peaking at 5,451. The patient sub sequently was discharged post appendectomy, but had persistent epigastric pain with intractable nause a and vomiting prompting his return to the emergency department on 04/06/2017. He also noted hematem esis at the time of his repeat presentation. He did not have any significant diarrhea associated wit h his illness other than some post endoscopy at the time of this admission. Endoscopically, he was n oted to have diffuse, nodular, erythematous, slightly exophytic mucosal surface through the entirety of the stomach with several small clean-based ulcerations. Biopsies were obtained and preliminarily do not show evidence of malignancy with flow cytometry currently pending. He subsequently had repeat CT scan of the abdomen and pelvis performed which showed small subtle fluid collection along the spl enic capsule, pancreatitis, and 2 segments of narrowed bowel, 1 in the ileum and 1 in the sigmoid reg ion. CT scan of the chest showed bilateral pulmonary nodules with the most prominent being in the le ft upper lobe and left lower lobe with some central lucency noted in the 12 mm upper lobe nodule. 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 He does not recall having any TB screening performed. 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 Does not recall any exposure to animals such as rabbits or squirrels. The patient does travel to [place], [place]. No large dust storms when traveling there. He traveled to [place] earlier in the year and th inks he may have eaten some blood sausage. He does not eat any undercooked pork, tripe, or pork skin s. He traveled to [place] in February and did visit a farm where he consumed apple cider. He did g o to a petting zoo and believes he had contact with goats. He does not recall any contact with pigs. No unusual hobbies such as caving. Earlier today, a stool pathogen panel by PCR was obtained and i s currently pending. He does not note any HIV risk factors. Given the above appendiceal findings an d clinical symptoms, I am now asked to assist in his ongoing management from an infectious disease pe rspective. PAST MEDICAL HISTORY: Asthma, gluten intolerance. PAST SURGICAL HISTORY: As above. CURRENT MEDICATIONS: Bentyl 20 mg orally twice daily, Ativan 1 mg p.o. at bedtime, Dulera 2 puffs b. i.d., Zofran as needed, Protonix 40 mg IV b.i.d., Carafate 1 g p.o. with meals and at night. ALLERGIES: Codeine associated with GI upset (is intolerance rather than allergy). SOCIAL HISTORY: Patient does not smoke and rarely drinks alcohol. No drug use. No HIV risk factors . Travel history as outlined above. 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 FAMILY HISTORY: Mother with peptic ulcer disease. Coronary artery disease in his father. REVIEW OF SYSTEMS: Outside that noted in the HPI, the remainder of 10 system review is unremarkable except for ongoing epigastric pain and inability to tolerate p.o. intake. Patient has not had fever during the course of his illness. PHYSICAL EXAMINATION: VITAL SIGNS: Temperature 36.7, heart rate 89, respiratory rate 16, blood pres sure 126/83, oxygen saturation 94% on room air. GENERAL: Patient is chronically ill appearing, in n o acute distress. He appears nontoxic. HEENT: There is no scleral icterus, conjunctival injection, or conjunctival petechiae. Oropharynx shows dry mucous membranes. There is no nasal discharge. Th ere is no tenderness over the frontal, maxillary, or mastoid area. NECK: Supple without palpable ly mphadenopathy or palpable thyromegaly. CHEST: Clear to auscultation bilaterally without adventitiou s sounds. Respiratory effort is normal. CARDIOVASCULAR: Regular rate and rhythm without murmurs, g allops, or rubs. ABDOMEN: Soft, tender in the epigastric region. No peritoneal signs. No palpable organomegaly. MUSCULOSKELETAL: There is no cyanosis, clubbing, or edema. SKIN: No rashes present . No stigmata of endocarditis. Skin is warm and dry to touch. NEUROLOGIC: Patient is alert and in teracts appropriately with the examiner. Cranial nerves 2-12 are grossly intact. Sensation is gross ly intact. Muscle tone and bulk are normal. LABORATORY DATA: White blood cell count 6.5, hematocrit 25.5, platelets 384, neutrophils 66%, lympho cytes 15%, monocytes 12%, eosinophils 5.5% with absolute eosinophil count of 360, ESR 94. Creatinine 0.8, C-reactive protein 168.5, albumin 2.2, AST 16, ALT 59, bilirubin 0.2, alkaline phosphatase 153, lipase 653 on 04/06/2017, TSH 2.2. Flow cytometry from stomach biopsies pending. Aspergillus serum antigen is negative. Stool pathogen panel by PCR is pending. Blood cultures x2 are pending. Imagi ng as outlined above which was reviewed and interpreted by me with Radiology today. IMPRESSION: 1. Appendicitis with histopathology showing presence of noncaseating granulomas: This has raised th e issue of: Could his appendicitis have been related to Yersinia enterocolitica? No discrete risk f actors for yersinia by history. Review in the medical literature of appendiceal specimens showing gr anulomatous inflammation shows that the most common etiology is prolonged interval to presentation wi th appendicitis with subsequent etiologies of consideration including yersinia, inflammatory bowel di sease, and other granulomatous infections. Invasive Yersinia enterocolitica infection can occur and cause more diffuse gastrointestinal involvement which remains in the differential diagnosis. Other i nfectious etiologies which could be associated with granuloma formation include mycobacterial and fun gal infection as well as less common etiologies such as zoonosis, given recent travel to farm. Nonin fectious considerations such as inflammatory bowel disease or autoimmune disease are also considerati ons and further evaluation is pending. Given remote possible exposure to tuberculosis and CT finding s, will also assess for prior exposure to tuberculosis. Nodular lesions on chest x-ray, however, are atypical for this etiology. 2. Pulmonary nodules: See above. Blood cultures are pending to assess for septic pulmonary emboli. Further serologic evaluation as outlined below. RECOMMENDATIONS: 1. Observe off antibiotics. 2. Await stool GI pathogen panel. 3. PPD placement (cannot perform T spot today due to lab collection requirements which preclude obta ining on afternoon/Friday/). 4. AFB blood cultures will be obtained. 5. Check HIV antibody. 6. Serologic evaluation for Q fever, tularemia, coccidioidomycosis, cryptococcus, and Brucella. 7. Agree with plans for autoimmune evaluation. 8. Suspect patient will require colonoscopy when feasible to evaluate remainder of gastrointestinal tract including terminal ileum. 9. The findings and plan were reviewed with patient and family as well as Dr. Grajeda today. Thank you for this consultation. We will continue to follow the patient with you. /[id number]/MODL
--- NOTE | 2017-04-10 21:09 | SOAPPROG ---
[facility] Progress Note Assessment/Plan: Assessment: Plan: 04/07/17 13:42 A/P 1. GI bleed- upper. S/p EGD with carpet lesion with ulcerations throughout most of the stomach. Multiple biopsies taken. Lymphoma versus other? Await biopsy results. Recommend to continue PPI infusion. Monitor H/H 2. Abdominal pain- epigastric. Occurs only when eating. Suspect secondary to stomach lesion. Not consistent with pancreatitis. 3. Abnormal imaging- questionable bowel stricture? Recommend colonoscopy as outpatient. R/b/a discussed with patient. 4. Increased LFTs- will monitor. 04/08/17 15:03 A/P 1. GI bleed- upper. Suspect oozing from gastric lesions. Biopsies pending. I called down to pathology today for an update but they have not reviewed the slides yet. Clinically does not appear to be actively bleeding. Did have drop in Hemoglobin this am. Continue PPI infusion. Will follow. 2. Abdominal pain - epigastric. Suspect secondary to gastric lesion. Will start a trial of Carafate. 3. Increased LFTs- will monitor. 04/09/17 10:03 A/P 1. GI bleed- upper. S/p EGD with carpet like lesion seen with ulcerations. Biopsies pending but preliminary report shows significant inflammation. Final report this afternoon? Continue PPI infusion. 2. Abdominal pain- Improved on Carafate. Recommend trial of bentyl. Will try to advance diet soon. 3. Increased LFTs 04/10/17 20:53 A/P 1. UGIB- s/p EGD with biopsies. Reviewed path with pathology. Significant inflammation seen. No obvious etiology. Flow cytometry results still pending. Slides will be sent for immunostaining. Autoimmune versus infectious versus other? 2. Abdominal pain- improved on Carafate and antispasmodic. Tolerating minimal oral intake. 3. Abnormal imaging- with swollen pancreas and elevated pancreatic enzymes. Recommend to check IgG4. Discussed with hospitalist. Reviewed CT scan with radiology and bowel strictures may be underdistension. Would still recommend colonoscopy when able to tolerate prep. Subjective: cc: Follow up GI bleed Tolerating minimal oral intake. No recent BM. Objective: Vital Signs Temp Pulse Resp BP Pulse Ox 37.7 C 88 14 135/79 H 94 04/10/17 20:00 04/10/17 20:00 04/10/17 20:00 04/10/17 20:00 04/10/17 20:00 Microbiology 04/10/17 11:10 Gastrointestinal Tract Panel (PCR) - Final Stool No Organism Detected Laboratory Results 04/10/17 05:40 04/10/17 05:40 04/09/17 04/10/17 04/11/17 05:59 05:59 05:59 Intake Total 3193 2930 1260 Output Total 500 1200 1100 Balance 2693 1730 160 PT 15.2 SEC (12.0-15.0) H 04/06/17 03:40 INR 1.18 (0.83-1.16) H 04/06/17 03:40 Physical Exam - Physical Exam General Appearance: alert, no apparent distress, moderate distress EENT: No scleral icterus (R), No scleral icterus (L) Respiratory: lungs clear, normal breath sounds, No crackles, No rales Cardiac/Chest: regular rate, rhythm, No diastolic murmur, No systolic murmur, No irregularly irregular Abdomen: normal bowel sounds, non-tender, soft, No distended, No guarding Skin: normal color, warm/dry Neuro/Psych: normal mood/affect, oriented x 3, No abnormal cerebellar tests, 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
[2017-04-11 04:44] LABS: PLATELET COUNT 376 10^3/uL (150-400)
[2017-04-11 06:33] LABS: HIV TYPE 1 AND 2 NEGATIVE (NEGATIVE)
[2017-04-11] MEDS: PANTOPRAZOLE SODIUM 40 MG VIAL IVP SCH (08:40)
[2017-04-11] MEDS: DICYCLOMINE 20 MG TAB PO SCH ×2 (08:40→20:18)
[2017-04-11] MEDS: SUCRALFATE 1 GM/10 ML UDCUP PO SCH ×4 (08:40→20:17)
[2017-04-11] MEDS: (Mometasone/Formoterol [Dulera 200 Mcg/5 Mcg Inhaler] 2 PUFFS) IH SCH ×2 (11:16→20:17)
--- NOTE | 2017-04-11 16:19 | SOAPPROG ---
[facility] Progress Note Assessment/Plan: Assessment: Plan: 04/07/17 13:42 A/P 1. GI bleed- upper. S/p EGD with carpet lesion with ulcerations throughout most of the stomach. Multiple biopsies taken. Lymphoma versus other? Await biopsy results. Recommend to continue PPI infusion. Monitor H/H 2. Abdominal pain- epigastric. Occurs only when eating. Suspect secondary to stomach lesion. Not consistent with pancreatitis. 3. Abnormal imaging- questionable bowel stricture? Recommend colonoscopy as outpatient. R/b/a discussed with patient. 4. Increased LFTs- will monitor. 04/08/17 15:03 A/P 1. GI bleed- upper. Suspect oozing from gastric lesions. Biopsies pending. I called down to pathology today for an update but they have not reviewed the slides yet. Clinically does not appear to be actively bleeding. Did have drop in Hemoglobin this am. Continue PPI infusion. Will follow. 2. Abdominal pain - epigastric. Suspect secondary to gastric lesion. Will start a trial of Carafate. 3. Increased LFTs- will monitor. 04/09/17 10:03 A/P 1. GI bleed- upper. S/p EGD with carpet like lesion seen with ulcerations. Biopsies pending but preliminary report shows significant inflammation. Final report this afternoon? Continue PPI infusion. 2. Abdominal pain- Improved on Carafate. Recommend trial of bentyl. Will try to advance diet soon. 3. Increased LFTs 04/10/17 20:53 A/P 1. UGIB- s/p EGD with biopsies. Reviewed path with pathology. Significant inflammation seen. No obvious etiology. Flow cytometry results still pending. Slides will be sent for immunostaining. Autoimmune versus infectious versus other? 2. Abdominal pain- improved on Carafate and antispasmodic. Tolerating minimal oral intake. 3. Abnormal imaging- with swollen pancreas and elevated pancreatic enzymes. Recommend to check IgG4. Discussed with hospitalist. Reviewed CT scan with radiology and bowel strictures may be underdistension. Would still recommend colonoscopy when able to tolerate prep. 04/11/17 16:16 A/P 1. Gastric lesion- s/p EGD with biopsy. On pathology, significant inflammation seen but no diagnosis made. Autoimmune versus Crohns versus other? Await immunostains and blood work. Empiric trial of steroids if no diagnosis? Will need colonoscopy when able to tolerate prep. The stricture seen on CT may be secondary to underdistension. 2. Abdominal pain- improving on Carafate and antispasmodic. 3 GI bleed- resolved? Continue PPI infusion. Subjective: cc: Abdominal pain. Still complaining of abdominal pain when eating but improving. Objective: Vital Signs Temp Pulse Resp BP Pulse Ox 36.9 C 95 20 130/54 H 93 04/11/17 15:23 04/11/17 15:23 04/11/17 15:23 04/11/17 15:23 04/11/17 15:23 Microbiology 04/10/17 11:10 Gastrointestinal Tract Panel (PCR) - Final Stool No Organism Detected Laboratory Results 04/11/17 04:29 04/11/17 04:29 04/10/17 04/11/17 04/12/17 05:59 05:59 05:59 Intake Total 2930 2460 340 Output Total 1200 2300 700 Balance 1730 160 -360 PT 15.2 SEC (12.0-15.0) H 04/06/17 03:40 INR 1.18 (0.83-1.16) H 04/06/17 03:40 Physical Exam - Physical Exam General Appearance: alert, no apparent distress EENT: No scleral icterus (R), No scleral icterus (L) Respiratory: lungs clear, normal breath sounds, No crackles, No rales Cardiac/Chest: regular rate, rhythm, No bradycardia, No tachycardia, No diastolic murmur, No systolic murmur Abdomen: normal bowel sounds, non-tender, soft, No distended, No guarding, No rebound Skin: normal color, warm/dry Neuro/Psych: normal mood/affect, oriented x 3, No abnormal scow hand II-XII ICD10 Worksheet Patient Problems: Problems Problem Status Onset Vomiting Acute Abdominal pain Acute Dehydration Acute Elevated lipase Acute Elevated troponin Acute Appendicitis Acute Upper GI bleed Acute
--- NOTE | 2017-04-11 16:46 | HOSPPROG ---
Hospitalist Progress Note Assessment/Plan: Assessment: 56-year-old male presents with acute upper gastrointestinal hemorrhage in the setting of suspected inflammatory bowel disorder Plan: 1. Upper gastrointestinal hemorrhage. Acute, secondary to bleeding nodular lesions noted on upper endoscopy, preliminary path negative for malignancy, occurring in the setting of increased NSAID use -tolerating orals., adjust to PPI twice daily p.o. -recommend no NSAIDs 2. Suspected inflammatory bowel disease. Acute, new problem this provider, further workup indicated. Evidenced by elevated inflammatory markers, nodular lesions in the stomach, recent appendicitis with pathology demonstrating noncaseating granulomas -CT of the abdomen demonstrating bowel narrowing, resulting in complete inability to tolerate oral intake -MRI of abdomen pending -discussed with Dr. Denzel Rey, we both agreed that the most likely cause of the patient's disorder is inflammatory in nature, and a steroid trial is indicated -once the patient is able to affectively tolerate oral intake regularly, will perform bowel prep and get colonoscopy -carafate and bentyl 3. Pulmonary nodules. Unclear whether these are related to underlying inflammatory bowel disease -discussed with Dr. Bruce Cortes, patient's AFB smear is negative, he agrees with steroid trial at this time -rheumatoid factor marginally elevated, other inflammatory markers pending 4. Pancreatitis. Acute, idiopathic, IgG4 sent, MRCP demonstrating resolving pancreatitis 5. Acute blood loss anemia. Hgb stabilized, cont to monitor -patient w/ iron deficient component, will propose 3 doses of IV iron 6. SVT. Acute, likely provoked from severe illness, recent Echo wnl -tele demonstrating sinus arrhythmia vs. Afib (personally interpreted), cont to monitor Diet. Clears PPx. High risk, SCDs Code. Full Dispo. ADD uncertain, remains severely ill Subjective: poor appetite, melanotic stool Objective: Vital Signs Temp Pulse Resp BP Pulse Ox 36.9 C 95 20 130/54 H 93 04/11/17 15:23 04/11/17 15:23 04/11/17 15:23 04/11/17 15:23 04/11/17 15:23 Microbiology 04/10/17 11:10 Gastrointestinal Tract Panel (PCR) - Final Stool No Organism Detected Laboratory Results 04/11/17 04:29 04/11/17 04:29 04/10/17 04/11/17 04/12/17 05:59 05:59 05:59 Intake Total 2930 2460 340 Output Total 1200 2300 700 Balance 1730 160 -360 PT 15.2 SEC (12.0-15.0) H 04/06/17 03:40 INR 1.18 (0.83-1.16) H 04/06/17 03:40 - Physical Exam Constitutional: no apparent distress, not in pain, chronically ill appearing, uncomfortable Cardiovascular: irregularly irregular, tachycardia, No systolic murmur, No edema Respiratory: inspiratory crackles (bilat bases), No reduced air movement, No expiratory wheeze, No bronchial breath sounds, No respiratory distress Gastrointestinal: normoactive bowel sounds, tenderness (mid epigastric area), No guarding, No distension Skin: No rash Neurologic: AAOx3, sensation intact bilaterally, No weakness, No facial droop Psychiatric: not anxious, not encephalopathic, flat affect, No agitated ICD10 Worksheet Patient Problems: Problems Problem Status Onset Vomiting Acute Abdominal pain Acute Dehydration Acute Elevated lipase Acute Elevated troponin Acute Appendicitis Acute Upper GI bleed Acute
[2017-04-11] MEDS: LORazepam 1 MG TAB PO SCH (20:18)
[2017-04-11] MEDS: PANTOPRAZOLE SODIUM 40 MG TAB PO SCH (20:18)
[2017-04-12] MEDS: D5W LR 1,000 ML IV SCH ×3 (03:38→20:24)
[2017-04-12 04:11] LABS: PLATELET COUNT 407 10^3/uL (150-400)
[2017-04-12] MEDS: PANTOPRAZOLE SODIUM 40 MG TAB PO SCH ×2 (07:55→20:19)
[2017-04-12] MEDS: SUCRALFATE 1 GM/10 ML UDCUP PO SCH ×4 (07:55→20:20)
[2017-04-12] MEDS: DICYCLOMINE 20 MG TAB PO SCH ×2 (07:55→20:19)
[2017-04-12] MEDS: methylPREDNISolone SOD SUCC 125 MG/2 ML VIAL IVP SCH ×4 (08:43→23:35)
--- NOTE | 2017-04-12 09:37 | HOSPPROG ---
Hospitalist Progress Note Assessment/Plan: Assessment: 56-year-old male presents with acute upper gastrointestinal hemorrhage and anemia in the setting of suspected inflammatory bowel disorder Plan: 1. Upper gastrointestinal hemorrhage. Acute, secondary to bleeding nodular lesions noted on upper endoscopy, preliminary path negative for malignancy, occurring in the setting of increased NSAID use -tolerating orals., adjusted to PPI twice daily p.o. -recommend no NSAIDs 2. Suspected inflammatory bowel disease. Acute, evidenced by elevated inflammatory markers, nodular lesions in the stomach, recent appendicitis with pathology demonstrating noncaseating granulomas, MRCP w/ duodenitis and ongoing poor ability to tolerate PO intake -discussed with Dr. Denzel Rey, we both agreed that the most likely cause of the patient's disorder is inflammatory in nature, and a steroid trial is indicated -started high dose IV steroid trial today, gauge effect on PO intake -once the patient is able to affectively tolerate oral intake regularly, will perform bowel prep and get colonoscopy -cargustavo and gabyl -counseled patient and extensively that the exact diagnosis is unclear, but colonoscopy may help define whether this is more c/w Crohn's, and some of the send-outs are still pending -appreciate ongoing GI consultation 3. Pulmonary nodules. Unclear whether these are related to underlying inflammatory bowel disease -discussed with Dr. Bruce Cortes, patient's AFB smear is negative, he agreed with steroid trial at this time -rheumatoid factor marginally elevated, other inflammatory markers pending 4. Pancreatitis. Acute, idiopathic, IgG4 sent, MRCP demonstrating resolving pancreatitis, lipase normalized, no tenderness on today's exam 5. Acute blood loss anemia. Hgb stabilized, cont to monitor -patient w/ iron deficient component, patient agreeable to IV iron boost (3 days ) 6. SVT. Acute, likely provoked from severe illness, recent Echo wnl -tele demonstrating sinus arrhythmia vs. Afib (personally interpreted), cont to monitor Diet. Clears PPx. High risk, SCDs Code. Full Dispo. ADD uncertain, remains severely ill Subjective: ongoing poor oral intake, abd cramping w/ PO intake Objective: Vital Signs Temp Pulse Resp BP Pulse Ox 36.8 C 86 22 H 118/69 91 L 04/12/17 07:50 04/12/17 07:50 04/12/17 07:50 04/12/17 07:50 04/12/17 07:50 Microbiology 04/11/17 13:41 Mycobacterial Smear (JUDY) - Final Blood Laboratory Results 04/12/17 03:37 04/12/17 03:37 04/11/17 04/12/17 04/13/17 05:59 05:59 05:59 Intake Total 2460 2990 Output Total 2300 2400 300 Balance 160 590 -300 PT 15.2 SEC (12.0-15.0) H 04/06/17 03:40 INR 1.18 (0.83-1.16) H 04/06/17 03:40 - Time Spent With Patient Time Spent with Patient: greater than 35 minutes Time Spent with Patient: Greater than 35 minutes spent on this patients care, greater than 50% of time spent counseling, educating, and coordinating care regarding the above mentioned plan. - Physical Exam Constitutional: no apparent distress, not in pain, chronically ill appearing Cardiovascular: regular rate and rhythym, no murmur, rub, or gallop, edema ( trace bilat LE) Respiratory: inspiratory crackles (bilat bases), No reduced air movement, No expiratory wheeze, No bronchial breath sounds Gastrointestinal: normoactive bowel sounds, soft, non-tender abdomen, No tenderness, No distension Neurologic: AAOx3, No weakness, No facial droop Psychiatric: not anxious, not encephalopathic, flat affect, No agitated ICD10 Worksheet Patient Problems: Problems Problem Status Onset Vomiting Acute Abdominal pain Acute Dehydration Acute Elevated lipase Acute Elevated troponin Acute Appendicitis Acute Upper GI bleed Acute
[2017-04-12] MEDS: (Mometasone/Formoterol [Dulera 200 Mcg/5 Mcg Inhaler] 2 PUFFS) IH SCH ×2 (09:41→20:20)
[2017-04-12] MEDS: SODIUM FERRIC GLUCONAT/SUCROSE 125 MG in NS 100 ML IV SCH (10:22)
--- NOTE | 2017-04-12 16:17 | SOAPPROG ---
SOAP Progress Note Assessment/Plan: Assessment: 1. UGI bleed secondary to inflammatory process of the stomach; etiology still unclear but leaning towards IBD. 2. Post-prandial abdominal pain likely secondary to stomach inflammation; improved. 2. Pancreatitis, clinically resolved. Plan: 1. IV steroids. 2. Colyte prep and colonoscopy when symptoms improved. Reyes Love MD 04/12/17 16:14 Subjective: CC: UGI Bleed. Interval HPI: Patient feeling better today with less abdominal discomfort and no further GI bleeding. Objective: Vital Signs Temp Pulse Resp BP Pulse Ox 36.2 C 81 12 112/71 91 L 04/12/17 14:00 04/12/17 14:00 04/12/17 14:00 04/12/17 14:00 04/12/17 14:00 Microbiology 04/11/17 13:41 Mycobacterial Smear (JUDY) - Final Blood Laboratory Results 04/12/17 03:37 04/12/17 03:37 04/11/17 04/12/17 04/13/17 05:59 05:59 05:59 Intake Total 2460 2990 Output Total 2300 2400 725 Balance 160 590 -725 PT 15.2 SEC (12.0-15.0) H 04/06/17 03:40 INR 1.18 (0.83-1.16) H 04/06/17 03:40 Physical Exam - Physical Exam General Appearance: WD/WN, alert, mild distress Respiratory: chest non-tender, lungs clear, normal breath sounds Cardiac/Chest: normal peripheral pulses, regular rate, rhythm Abdomen: normal bowel sounds, non-tender, soft Skin: normal color, warm/dry Neuro/Psych: alert, normal mood/affect, oriented x 3 ICD10 Worksheet Patient Problems: Problems Problem Status Onset Upper GI bleed Acute Abdominal pain Acute Appendicitis Acute Dehydration Acute Elevated lipase Acute Elevated troponin Acute Vomiting Acute
--- NOTE | 2017-04-12 16:50 | ASMTCMCOM ---
CM Note CM Note Notes: Reviewed chart regarding discharge plan, pt's progress. Per MD notes, pt w/ continued abdominal pain, pancreatitis, UGI; pt to have a colonoscopy when symptoms improve. Continue to anticipate pt will discharge home independently w/ family support when medically stable. CM will cont to follow. Current Discharge Plan: Home independently Date Signed: 04/12/2017 04:50 PM Electronically Signed By:Kassandra Feliz RN
[2017-04-12] MEDS: LORazepam 1 MG TAB PO SCH (20:20)
[2017-04-13 04:20] LABS: PLATELET COUNT 417 10^3/uL (150-400)
[2017-04-13] MEDS: methylPREDNISolone SOD SUCC 125 MG/2 ML VIAL IVP SCH ×3 (06:32→17:33)
[2017-04-13] MEDS: D5W LR 1,000 ML IV SCH (06:34)
[2017-04-13] MEDS: DICYCLOMINE 20 MG TAB PO SCH ×2 (08:01→21:30)
[2017-04-13] MEDS: SUCRALFATE 1 GM/10 ML UDCUP PO SCH ×4 (08:01→21:30)
[2017-04-13] MEDS: SODIUM FERRIC GLUCONAT/SUCROSE 125 MG in NS 100 ML IV SCH (08:02)
[2017-04-13] MEDS: PANTOPRAZOLE SODIUM 40 MG TAB PO SCH ×2 (08:02→21:30)
[2017-04-13] MEDS: (Mometasone/Formoterol [Dulera 200 Mcg/5 Mcg Inhaler] 2 PUFFS) IH SCH ×2 (08:03→20:27)
--- NOTE | 2017-04-13 10:12 | SOAPPROG ---
SOAP Progress Note Assessment/Plan: Assessment: 1. UGI bleed secondary to inflammatory process of the stomach; etiology still unclear but leaning towards IBD. 2. Post-prandial abdominal pain likely secondary to stomach inflammation; improved though still has sensitive stomach and not sure he can take colon prep this am. 2. Pancreatitis, clinically resolved. Plan: 1. IV steroids. 2. Colyte prep tonight and colonoscopy in am. Reyes Love MD 04/13/17 10:09 Subjective: CC: UGI bleed and gastric inflammation of unknown etiology. Interval HPI; Patient feeling better today with less abdominal discomfort with clears po albeit still uncomfortable and does not feel he could take Colyte prep yet this am. Objective: Vital Signs Temp Pulse Resp BP Pulse Ox 36.7 C 81 20 129/78 H 93 04/13/17 08:45 04/13/17 08:45 04/13/17 08:45 04/13/17 08:45 04/13/17 08:45 Laboratory Results 04/13/17 03:50 04/13/17 03:50 04/12/17 04/13/17 04/14/17 05:59 05:59 05:59 Intake Total 2990 4675 Output Total 2400 1975 675 Balance 590 2700 -675 PT 15.2 SEC (12.0-15.0) H 04/06/17 03:40 INR 1.18 (0.83-1.16) H 04/06/17 03:40 Physical Exam - Physical Exam General Appearance: WD/WN, alert, no apparent distress Respiratory: lungs clear, normal breath sounds Cardiac/Chest: regular rate, rhythm Abdomen: normal bowel sounds, soft, distended (mildly tender diffusely.) Skin: normal color, warm/dry Neuro/Psych: alert, normal mood/affect, oriented x 3 ICD10 Worksheet Patient Problems: Problems Problem Status Onset Upper GI bleed Acute Abdominal pain Acute Appendicitis Acute Dehydration Acute Elevated lipase Acute Elevated troponin Acute Vomiting Acute
--- NOTE | 2017-04-13 10:53 | PCMIDPN ---
Assessment/Plan: Assessment/Plan: * Appendicitis status post appendectomy with histopathology showing granulomas: See initial consultation for differential diagnosis. Multiple serologies are pending from Infectious Disease perspective. Colonoscopy planned for tomorrow a.m.. PPD is 0 mm of induration. Clinically improved with empiric corticosteroids. Continue observation off antibiotics. * Pulmonary nodules: Unclear etiology. Await serologic evaluation. 04/13/17 10:49 Subjective: Feels improved with less epigastric pain after starting steroids. Complains of poor tolerance of cold liquids. Objective: Vital Signs Temp Pulse Resp BP Pulse Ox 36.7 C 81 20 129/78 H 93 04/13/17 08:45 04/13/17 08:45 04/13/17 08:45 04/13/17 08:45 04/13/17 08:45 Laboratory Results 04/13/17 03:50 04/13/17 03:50 04/12/17 04/13/17 04/14/17 05:59 05:59 05:59 Intake Total 2990 4675 Output Total 2400 1975 675 Balance 590 2700 -675 ESR 94 MM/HR (0-20) H 04/10/17 05:40 C-Reactive Protein 168.5 mg/L (<10.0) H 04/10/17 05:40 No antibiotics PPD 0 mm AFB blood culture pending Cocci/Q fever/Brucella/Tularemia/Crypto pending - Physical Exam General Appearance: alert, no apparent distress EENT: No scleral icterus, No thrush Respiratory: lungs clear, No respiratory distress Cardiac/Chest: regular rate, rhythm Abdomen: non-tender, distended (mild diffusely) Skin: other (PPD left forearm 0 mm induration) ICD10 Worksheet Patient Problems: Problems Problem Status Onset Upper GI bleed Acute Abdominal pain Acute Appendicitis Acute Dehydration Acute Elevated lipase Acute Elevated troponin Acute Vomiting Acute
[2017-04-13] MEDS ORDERED: ALTEPLASE 2 MG VIAL IVP PRN (14:07)
--- NOTE | 2017-04-13 17:24 | HOSPPROG ---
Hospitalist Progress Note Assessment/Plan: Assessment: 56-year-old male presents with acute upper gastrointestinal hemorrhage and anemia in the setting of suspected inflammatory bowel disorder Plan: 1. Upper gastrointestinal hemorrhage. Acute, secondary to bleeding nodular lesions noted on upper endoscopy, preliminary path negative for malignancy, occurring in the setting of increased NSAID use -tolerating orals., adjusted to PPI twice daily p.o., cont carafate -recommend no NSAIDs 2. Suspected inflammatory bowel disease. Acute, evidenced by elevated inflammatory markers, nodular lesions in the stomach, recent appendicitis with pathology demonstrating noncaseating granulomas, MRCP w/ duodenitis and ongoing poor ability to tolerate PO intake -discussed with Dr. Love, we both agreed that the most likely cause of the patient's disorder is inflammatory in nature, and colonoscopy indicated to eval for lower GI lesions -started high dose IV steroid trial w/ positive effect -counseled patient that he should try colon prep tonight, hopefully get colonoscopy tomorrow -flow results w/o blast/B-cell/T-cell abnormalities -PICC for IV access 3. Pulmonary nodules. Unclear whether these are related to underlying inflammatory bowel disease -rheumatoid factor marginally elevated, other inflammatory markers pending 4. Pancreatitis. Acute, idiopathic, IgG4 sent, MRCP demonstrating resolving pancreatitis, lipase normalized, no tenderness on today's exam 5. Acute blood loss anemia. Hgb stabilized, cont to monitor -patient w/ iron deficient component, patient agreeable to IV iron boost (3 days ) 6. SVT. Acute, likely provoked from severe illness, recent Echo wnl - cont to monitor on tele Diet. Clears PPx. High risk, SCDs Code. Full Dispo. ADD uncertain, clinically unresolved, PO intake remains inadequate Subjective: increased PO intake from day prior, but remains low, had dark BMs, tolerating tea Objective: Vital Signs Temp Pulse Resp BP Pulse Ox 36.3 C 82 21 H 129/76 H 94 04/13/17 16:40 04/13/17 16:40 04/13/17 16:40 04/13/17 16:40 04/13/17 16:40 Laboratory Results 04/13/17 03:50 04/13/17 03:50 04/12/17 04/13/17 04/14/17 05:59 05:59 05:59 Intake Total 2990 4675 960 Output Total 2400 1975 750 Balance 590 2700 210 PT 15.2 SEC (12.0-15.0) H 04/06/17 03:40 INR 1.18 (0.83-1.16) H 04/06/17 03:40 - Time Spent With Patient Time Spent with Patient: greater than 35 minutes Time Spent with Patient: Greater than 35 minutes spent on this patients care, greater than 50% of time spent counseling, educating, and coordinating care regarding the above mentioned plan. - Physical Exam Constitutional: no apparent distress, not in pain, No uncomfortable Cardiovascular: regular rate and rhythym, no murmur, rub, or gallop, No tachycardia, No edema Respiratory: no respiratory distress, no rales or rhonchi, clear to auscultation Gastrointestinal: normoactive bowel sounds, soft, non-tender abdomen, no palpable masses, No distension Neurologic: AAOx3 Psychiatric: interacting appropriately, not anxious, not encephalopathic, thought process linear ICD10 Worksheet Patient Problems: Problems Problem Status Onset Vomiting Acute Abdominal pain Acute Dehydration Acute Elevated lipase Acute Elevated troponin Acute Appendicitis Acute Upper GI bleed Acute
[2017-04-13] MEDS ORDERED: PEG 3350/NA SULF,BICARB,CL/KCL (GAVILYTE-G) 4000 ML BTL PO ONE (18:00)
[2017-04-14] MEDS: methylPREDNISolone SOD SUCC 125 MG/2 ML VIAL IVP SCH ×4 (00:25→18:28)
[2017-04-14] MEDS: LORazepam 1 MG TAB PO SCH ×2 (00:25→20:28)
[2017-04-14 06:35] LABS: PLATELET COUNT 482 10^3/uL (150-400)
[2017-04-14] MEDS: SUCRALFATE 1 GM/10 ML UDCUP PO SCH ×4 (07:42→21:48)
[2017-04-14] MEDS: (Mometasone/Formoterol [Dulera 200 Mcg/5 Mcg Inhaler] 2 PUFFS) IH SCH ×2 (07:56→20:23)
[2017-04-14] MEDS: DICYCLOMINE 20 MG TAB PO SCH ×2 (08:22→20:28)
[2017-04-14] MEDS: PANTOPRAZOLE SODIUM 40 MG TAB PO SCH ×2 (08:22→20:28)
[2017-04-14] MEDS: SODIUM FERRIC GLUCONAT/SUCROSE 125 MG in NS 100 ML IV SCH (09:19)
[2017-04-14 11:42] LABS: BRUCELLA AB IGM Negative (Negative); BRUCELLA ANTIBODY IGG Negative (Negative); INTERPRETATION See Comments
--- NOTE | 2017-04-14 12:05 | PDANEPAE ---
ANE History of Present Illness 56 yo for colonoscopy ANE Past Medical History - Cardiovascular History Hx Hypertension: No Hx Arrhythmias: No Hx Chest Pain: No Hx Coronary Artery / Peripheral Vascular Disease: No Hx CHF / Valvular Disease: No Hx Palpitations: No - Pulmonary History Hx COPD: No Hx Asthma/Reactive Airway Disease: Yes Hx Recent Upper Respiratory Infection: Yes Hx Oxygen in Use at Home: No Hx Sleep Apnea: No Sleep Apnea Screening Result - Last Documented: Positive - Endocrine History Hx Diabetes: No - Chronic Pain History Chronic Pain: No ANE Review of Systems Review of Systems: - Exercise capacity METS (RN): 4 METS ANE Patient History - Allergies Allergies/Adverse Reactions: codeine Allergy (Intermediate, Verified 04/06/17 08:29) Vomiting - Home Medications Home medications: home medication list seen and reviewed Home Medications: Famotidine [Pepcid 20 MG (*)] 20 mg PO BID 03/27/17 [Last Taken 04/05/17] Mometasone/Formoterol [Dulera 200 Mcg/5 Mcg Inhaler] 2 puffs IH BID 03/27/17 [ Last Taken 04/05/17] Acetaminophen [Tylenol ES 500 mg (*)] 500 mg PO Q6 PRN 04/06/17 [Last Taken Unknown] Ibuprofen [Motrin (*)] 400 mg PO Q8 PRN 04/06/17 [Last Taken Unknown] LORazepam [Ativan (*)] 1 mg PO HS 04/06/17 [Last Taken 04/05/17] - NPO status NPO Since - Liquids (Date): 04/14/17 NPO Since - Liquids (Time): 00:01 NPO Since - Solids (Date): 04/07/17 - Smoking Hx Smoking Status: Never smoked [place] Labs/Vital Signs - Labs Result Diagrams: 04/14/17 06:15 04/14/17 06:15 - Vital Signs Blood Pressure: 127/77 Heart Rate: 69 Respiratory Rate: 18 O2 Sat (%): 93 Height: 5 ft 8 in Weight: 97.1 kg ANE Physical Exam - Airway Neck exam: FROM Mallampati Score: Class 2 Mouth exam: normal dental/mouth exam - Pulmonary Pulmonary: no respiratory distress - Cardiovascular Cardiovascular: regular rate and rhythym - ASA Status ASA Status: II ANE Anesthesia Plan Anesthesia Plan: GA with mask
[2017-04-14] MEDS ORDERED: PROPOFOL/EMULSION 500 MG/50 ML BOTTLE IV ONE (12:08)
[2017-04-14] MEDS ORDERED: ALBUTEROL 3 ML DEYVIAL IH PRN (12:29)
[2017-04-14] MEDS ORDERED: ONDANSETRON 4 MG/2 ML VIAL IVP PRN (12:29)
[2017-04-14] MEDS ORDERED: fentaNYL 100 MCG/2 ML INJ IVP PRN (12:29)
[2017-04-14] MEDS ORDERED: NALOXONE HCL 0.4 MG/ML INJ IVP PRN (12:29)
[2017-04-14] MEDS ORDERED: PROPOFOL 200 MG/20 ML VIAL ONE (12:45)
--- NOTE | 2017-04-14 12:53 | GIREPORT ---
[facility] Surgical Services - Endoscopy Department Patient Name: Gentry Mock Procedure Date: 04/14/2017 12:22 PM Patient Type: Inpatient Attending MD/ ER Physician: Reyes Love MD Procedure: Colonoscopy Indications: Abnormal CT of the GI tract: ? stricture or narrowing of terminal ileum and sigmoid colon. Providers: Reyes Love MD Medicines: General Anesthesia Complications: No immediate complications. Description of Procedure: After obtaining informed consent, the scope was passed under direct vis ion. Throughout the procedure, the patient's blood pressure, pulse, and oxyg en saturations were monitored continuously. The Colonoscope was introduced through the anus and advanced to 10 cm into the ileum. The colonoscopy was somewhat difficult due to significant looping and a tortuous colon. Successful completion of the procedure was aided by using manual pressu re and straightening and shortening the scope to obtain bowel loop reducti on. The patient tolerated the procedure well. The quality of the bowel preparation was excellent. Findings: The terminal ileum appeared normal. The colon (entire examined portion) appeared normal. The perianal and digital rectal examinations were normal. Estimated Blood Loss: Estimated blood loss: none. Post Op Diagnosis: - The examined portion of the ileum was normal. - The entire examined colon is normal. - No specimens collected. Recommendation: - Return patient to hospital [facility] for ongoing care. - Advance diet as tolerated today. - Repeat colonoscopy in 10 years for screening purposes. Attending Participation: I personally performed the entire procedure. Reyes Love MD Reyes Love MD 04/14/2017 12:52:48 PM This report has been signed electronicallyReyes Love MD Number of Addenda: 0 Note Initiated On: 04/14/2017 12:22 PM Total Procedure Duration Time 0 hours 20 minutes 22 seconds [email or web address]
[2017-04-14 14:23] LABS: INTERPRETATION See Comments
[2017-04-14] MEDS ORDERED: POTASSIUM CL 20 MEQ TAB PO ONE (16:25)
--- NOTE | 2017-04-14 16:41 | HOSPPROG ---
Hospitalist Progress Note Assessment/Plan: Assessment: 56-year-old male presents with acute upper gastrointestinal hemorrhage and anemia in the setting of suspected inflammatory bowel disorder and systemic symptoms beginning approx 6 weeks ago Plan: 1. Upper gastrointestinal hemorrhage. Acute, secondary to bleeding nodular lesions noted on upper endoscopy, preliminary path negative for malignancy, occurring in the setting of increased NSAID use and suspected inflammatory bowel disease -tolerating orals., adjusted to PPI twice daily p.o., cont carafate -recommend no NSAIDs -melena cleared today, suspect inflammation calming in stomach/duodenum 2. Suspected inflammatory bowel disease. Acute, evidenced by elevated inflammatory markers, nodular lesions in the stomach, recent appendicitis with pathology demonstrating noncaseating granulomas, MRCP w/ duodenitis -discussed with Dr. Love, we both agreed that the most likely cause of the patient's disorder is inflammatory in nature, and colonoscopy demonstrated no colonic lesions -given upper GI findings and pulm manifestations, I suspect this may be ulcerative colitis -started high dose IV steroid trial w/ positive effect, adjusting to PO prednisone tomorrow AM -appreciate ongoing GI consult, recommend outpt f/u in approx 1 week to reassess symptoms and continue conversations w/ patient regarding tx for presumed diagnosis -patient may want outpt rheum consultation, contact info in DC plan -patient and counseled extensively regarding the above 3. Pulmonary nodules. Unclear whether these are related to underlying inflammatory bowel disease, or whether the patient has a concomitant sarcoidosis -rheumatoid factor marginally elevated, other inflammatory markers pending -d/w Dr. Roberto Hills, nodules could be related to a UC-like process, or sarcoid -if patient develops pulm symptoms (had 6 weeks ago at beginning of illness), then rec outpt consult w/ Dr. Hills 4. Pancreatitis. Acute, idiopathic, IgG4 sent, MRCP demonstrating resolving pancreatitis, lipase normalized, no tenderness on today's exam 5. Acute blood loss anemia. Hgb stabilized, cont to monitor -patient w/ iron deficient component, patient s/p IV iron boost (3 days) 6. SVT. Acute, likely provoked from severe illness, recent Echo wnl - cont to monitor on tele Diet. Regular w/ smoothies PPx. High risk, lovenox 40 Code. Full Dispo. ADD 04/15 vs. 04/16, pending PO tolerance and stabilization of above Subjective: tolerated colon prep last PM, it was a "Hurculanean effort", melena cleared Objective: Vital Signs Temp Pulse Resp BP Pulse Ox 36.3 C 81 16 128/73 H 93 04/14/17 15:43 04/14/17 15:43 04/14/17 15:43 04/14/17 15:43 04/14/17 15:43 Laboratory Results 04/14/17 06:15 04/14/17 06:15 04/13/17 04/14/17 04/15/17 05:59 05:59 05:59 Intake Total 4675 960 525 Output Total 1975 1000 Balance 2700 -40 525 PT 15.2 SEC (12.0-15.0) H 04/06/17 03:40 INR 1.18 (0.83-1.16) H 04/06/17 03:40 - Time Spent With Patient Time Spent with Patient: greater than 35 minutes Time Spent with Patient: Greater than 35 minutes spent on this patients care, greater than 50% of time spent counseling, educating, and coordinating care regarding the above mentioned plan. - Physical Exam Constitutional: no apparent distress, not in pain, uncomfortable Cardiovascular: regular rate and rhythym, no murmur, rub, or gallop, edema ( trace bilat LE) Respiratory: no respiratory distress, no rales or rhonchi, clear to auscultation Gastrointestinal: normoactive bowel sounds, soft, non-tender abdomen, no palpable masses Neurologic: AAOx3 Psychiatric: anxious, flat affect, No agitated ICD10 Worksheet Patient Problems: Problems Problem Status Onset Vomiting Acute Abdominal pain Acute Dehydration Acute Elevated lipase Acute Elevated troponin Acute Appendicitis Acute Upper GI bleed Acute
[2017-04-14] MEDS ORDERED: chlorproMAZINE HCL 25 MG TAB PO PRN (18:24)
[2017-04-14 23:20] VITALS: RESP 16
[2017-04-15] MEDS: methylPREDNISolone SOD SUCC 125 MG/2 ML VIAL IVP SCH (00:23)
[2017-04-15 07:25] VITALS: BP 127/80; PULSE 66; TEMP 97.8; O2SAT 95
[2017-04-15] MEDS: SUCRALFATE 1 GM/10 ML UDCUP PO SCH (08:41)
[2017-04-15] MEDS: DICYCLOMINE 20 MG TAB PO SCH (08:41)
[2017-04-15] MEDS: PANTOPRAZOLE SODIUM 40 MG TAB PO SCH (08:41)
[2017-04-15] MEDS: (Mometasone/Formoterol [Dulera 200 Mcg/5 Mcg Inhaler] 2 PUFFS) IH SCH (08:44)
[2017-04-15] MEDS ORDERED: predniSONE 20 MG TAB PO SCH (09:00)
--- NOTE | 2017-04-15 09:37 | HOSPPROG ---
Hospitalist Progress Note Assessment/Plan: assessment: 56-year-old male presents with acute upper gastrointestinal hemorrhage and anemia in the setting of suspected inflammatory bowel disorder and systemic symptoms beginning approx 6 weeks ago Plan: 1. Upper gastrointestinal hemorrhage. s/p blood tranfusin and IV iron hct stable 2. Suspected inflammatory bowel disease. Acute, evidenced by elevated inflammatory markers, nodular lesions in the stomach, recent appendicitis with pathology demonstrating noncaseating granulomas, MRCP w/ duodenitis presumptive diagnosis of IBD normal TI and colon anemia of chronic disease and high inflammatory markers home on 40 pred until follow up 3. Pulmonary nodules. Unclear whether these are related to underlying inflammatory bowel disease, or whether the patient has a concomitant sarcoidosis rheumatoid factor marginally elevated, other inflammatory markers pending rec repeat CT in 6 months 4. Pancreatitis. Acute, idiopathic, IgG4 sent, MRCP demonstrating resolving pancreatitis, lipase normalized, no tenderness on today's exam 5. Acute blood loss anemia. Hgb stabilized, cont to monitor -patient w/ iron deficient component, patient s/p IV iron boost (3 days) 6. SVT. Acute, likely provoked from severe illness, recent Echo wnl - cont to monitor on tele Diet. Regular w/ smoothies PPx. High risk, lovenox 40 Code. Full Dispo. ADD 04/15 vs. 04/16, pending PO tolerance and stabilization of above Subjective: ready for dc. has outpt follow up w shea. 30' spent on dc Objective: Vital Signs Temp Pulse Resp BP Pulse Ox 36.6 C 66 16 127/80 H 95 04/15/17 07:23 04/15/17 07:23 04/15/17 07:23 04/15/17 07:23 04/15/17 07:23 Microbiology 04/09/17 11:28 Blood Culture - Final Blood 04/09/17 11:28 Blood Culture - Final Blood Laboratory Results 04/15/17 05:25 04/15/17 05:25 04/14/17 04/15/17 04/16/17 05:59 05:59 05:59 Intake Total 960 1225 Output Total 1000 Balance -40 1225 PT 15.2 SEC (12.0-15.0) H 04/06/17 03:40 INR 1.18 (0.83-1.16) H 04/06/17 03:40 - Physical Exam Constitutional: no apparent distress, appears nourished Eyes: PERRL, anicteric sclera Ears, Nose, Mouth, Throat: moist mucous membranes, hearing normal Cardiovascular: regular rate and rhythym, no murmur, rub, or gallop Respiratory: no respiratory distress, no rales or rhonchi Gastrointestinal: normoactive bowel sounds, soft, non-tender abdomen Genitourinary: no bladder fullness, No ortega in urethra Skin: warm, normal color Musculoskeletal: full muscle strength, no muscle tenderness Neurologic: sensation intact bilaterally ICD10 Worksheet Patient Problems: Problems Problem Status Onset Upper GI bleed Acute Abdominal pain Acute Appendicitis Acute Dehydration Acute Elevated lipase Acute Elevated troponin Acute Vomiting Acute
--- NOTE | 2017-04-15 11:16 | ASDISCHSUM ---
Discharge Information Plan Status:Home with No Needs Medically Cleared to Leave:04/14/2017 Discharge Date:04/15/2017 10:16 AM CM D/C Disposition:Home, Routine, Self-Care ADT D/C Disposition:Home, Routine, Self-Care Projected Discharge Date:04/15/2017 10:16 AM Transportation at D/C:Family Discharge Delay Reason: Follow-Up Date:04/15/2017 10:16 AM Discharge Slot: Final Diagnosis:Upper GI Bleed Placement Information Patient Contact Information Contact Name:BG Relationship: Address:[address] [place] City:[place] Alternate Phone: [facility]/Zip Code:[place] [address] Email: Financial Information Financial Class:HMO and PPO Plans Primary Plan Desc:[facility] Primary Plan Number:[id number] Secondary Plan Desc: Secondary Plan Number: Assessment Information [facility] CM Progress Note CM Note CM Note Notes: 56 year old male admitted for Upper GI bleed. He has a hx of Asthma and Appendicitis. Not anticipating that this patient will have discharge needs. Date Signed: 04/06/2017 03:53 PM Electronically Signed By:Yazmin Donovan LCSW [facility] CM Progress Note CM Note CM Note Notes: 04/08/2017 Case Management Note Reviewed chart. There are no PT or OT evals ordered at this time. There are no case management d/c needs identfied d/t marital status, employment status and activity levels prior to admission. Case Management d/c poc: anticipating independent with follow up as directed. Case Management available if needs change. Date Signed: 04/08/2017 04:22 PM Electronically Signed By:Ruthie Dale RN [facility] CM Progress Note CM Note CM Note Notes: Reviewed chart regarding discharge plan, pt's progress. Per MD notes, pt w/ continued abdominal pain, pancreatitis, UGI; pt to have a colonoscopy when symptoms improve. Continue to anticipate pt will discharge home independently w/ family support when medically stable. CM will cont to follow. Current Discharge Plan: Home independently Date Signed: 04/12/2017 04:50 PM Electronically Signed By:Kassandra Feliz RN LACE LACE Length of stay for Answers: 7-13 days current admission Acuity / Level of Care Answers: Was the patient admitted to hospital via the emergency department? Yes: Emergency dept visits in Answers: 0 last 6 months Score: 8 Date Signed: 04/15/2017 10:17 AM Electronically Signed By:Ruthie Dale RN Case Management Discharge Plan Note Case Management Discharge Discharge Order Complete? Answers: Yes Patient to Obtain Answers: Independently Medications Transportation Arranged Answers: Family/Friends Family Notified Answers: Yes Discharge Comments Notes: 04/15/2017 Case Management Note Pt d/c independent with no needs. Date Signed: 04/15/2017 10:25 AM Electronically Signed By:Ruthie Dale RN Intervention Information
[2017-04-15 16:00] LABS: FRANCISELLA (TULAREMIA) AB <1:20
--- NOTE | 2017-04-16 04:44 | GDS ---
[f rep st] DISCHARGE SUMMARY DISCHARGE DIAGNOSES: 1. Upper gastrointestinal bleed from presumed stomach source. 2. Likely inflammatory bowel disease. 3. Elevated inflammatory markers. 4. Acute blood-loss anemia. 5. Anemia of chronic disease. PROCEDURES: Upper gastrointestinal scope, which showed some nodularity in the stomach that was biops ied as well as nodular mucosa in the duodenal bulb. Biopsies were negative for lymphoma. They showe d severe mixed inflammatory infiltrate with lymphocytes and eosinophils as well as multinu cleated giant cells, but well-formed granulomas were not . AFB and fungal stains were done , which were negative. Viral inclusions were not seen. There is no evidence of lymphoma or other ma lignancy. H. pylori serologies were negative. The patient was HIV negative. Many infectious serolo gies were sent and were either negative or pending. He had abdominal and pelvic CAT scans. Abdomina l and chest CAT scan showing pulmonary nodules. He was initiated on prednisone. He received 3 days of IV iron. A colonoscopy was unremarkable including the terminal ileum. The patient was discharged on prednisone with outpatient GI follow up. He was given advice to follow up within 2 weeks. I hav e communicated with Dr. Denzel Rey. He is also discharged with a PPI. His hemoglobin and hematocrit were stable at the time of discharge. /[id number]/MODL
== END 2017-04-15 10:16 | disposition home or self-care (01) | DRG 391 ==
LOC: F3N 04:50 → OBSVTOIN 17:23 → F2W 04-08 16:03
PROVIDERS: ADMIT Family Medicine; ATTEND Family Medicine
PROC: 0DB68ZX Excision of Stomach, Via Natural or Artificial Opening Endoscopic, Diagnostic (ICD-10-PCS; principal; 2017-04-06 10:00)
PROC: 02HV33Z Insertion of Infusion Device into Superior Vena Cava, Percutaneous Approach (ICD-10-PCS; 2017-04-13)
PROC: 0DJD8ZZ Inspection of Lower Intestinal Tract, Via Natural or Artificial Opening Endoscopic (ICD-10-PCS; 2017-04-14)
PROC: 30233N1 Transfusion of Nonautologous Red Blood Cells into Peripheral Vein, Percutaneous Approach (ICD-10-PCS; 2017-04-14)
DX: K31.9 Disease of stomach and duodenum, unspecified (principal); K92.2 Gastrointestinal hemorrhage, unspecified; K85.00 Idiopathic acute pancreatitis without necrosis or infection; D62 Acute posthemorrhagic anemia; I47.1 Supraventricular tachycardia; D69.6 Thrombocytopenia, unspecified; R73.9 Hyperglycemia, unspecified; R91.1 Solitary pulmonary nodule; J45.909 Unspecified asthma, uncomplicated
CPT/HCPCS: 82607-90; 82787-90; 83516-90; 83520-90; 85060-90; 86162-90; 86255-90; 86622-90; 86635-90; 86638-90; 86668-90; 88184-90; 88185-91; 96374; 97161-GP; 97530-GP; C1751; J1940; J2405; J2704; J2916; J2930; J3010; J7512; J7613; P9016; Q9967

== ENCOUNTER 2017-05-14 07:14 | Day surgery (SDC) | payer BC ==
[2017-05-14] MEDS ORDERED: LIDOCAINE 1% 300 MG/30 ML SDV ONE (08:13)
[2017-05-14] MEDS ORDERED: PROTAMINE SULFATE 50 MG/5 ML VIAL IVP PRN (08:21)
[2017-05-14] MEDS ORDERED: FLUMAZENIL 0.5 MG/5 ML MDV IVP PRN (08:21)
[2017-05-14] MEDS ORDERED: GLUCAGON HCL 1 MG VIAL IVP PRN (08:21)
[2017-05-14] MEDS ORDERED: NALOXONE HCL 0.4 MG/ML INJ IVP PRN (08:21)
[2017-05-14] MEDS ORDERED: HEPARIN 10,000 UNIT/10 ML MDV (1,000 UNIT/ML) IVP PRN (08:21)
[2017-05-14] MEDS ORDERED: MIDAZOLAM 2 MG/2 ML VIAL IVP PRN (08:21)
[2017-05-14] MEDS ORDERED: fentaNYL 100 MCG/2 ML INJ IVP PRN (08:21)
[2017-05-14] MEDS ORDERED: ALTEPLASE 2 MG VIAL IVP PRN (08:21)
[2017-05-14] MEDS ORDERED: MEPERIDINE 25 MG/ML SYR IVP PRN (08:21)
[2017-05-14] MEDS ORDERED: hydrALAZINE 20 MG/ML VIAL IVP PRN (08:21)
[2017-05-14] MEDS ORDERED: NS 1,000 ML IV SCH (08:30)
--- NOTE | 2017-05-14 09:20 | PDGENHP ---
History & Physical Chief Complaint: Abnormal renal function History of Present Illness: Abnormal renal function. ?[id number] Cardiorespiratory Assessment: Clear lungs. RRR.
--- NOTE | 2017-05-14 09:20 | PDPROPOC ---
Sedation Plan of Care Sedation Plan of Care: mental status noted (alert and oriented) ASA Classification: ASA 2 Planned drugs: fentanyl, midazolam Mallampati Score: Class 3 Mallampati Reference Image: Patient passed 3-3-2 rule?: Yes
[2017-05-14] MEDS ORDERED: ONDANSETRON 4 MG/2 ML VIAL IVP PRN (10:33)
[2017-05-14] MEDS ORDERED: ACETAMINOPHEN 325 MG TAB PO PRN (10:33)
--- NOTE | 2017-05-14 10:40 | PDRADPN ---
Radiology Procedure Note Date of Procedure: 05/14/17 Radiologist: Efrain Henderson Drafting Supervisor(s): Harry Sawant CT RT Anesthesia: IV Sedation (Fentanyl and Versed) Pre-op Diagnosis: Renal Insufficiency. ? [id number] Post-op Diagnosis: Renal Insufficiency. ? [id number] Indication: eval for glomerulnephritis Procedure: CT guided biopsy Right kidney w/ 18ga core needle Inf/Abcess present in the surg proc area at time of surgery?: No Depth: Organ Space (Right retroperitoneal) EBL: Minimal Complications: No immediate complications Drains: Other (None)
[2017-05-14 15:10] VITALS: RESP 17; O2SAT 95
[2017-05-14 16:31] VITALS: BP 114/70
[2017-05-14 16:47] VITALS: PULSE 72; TEMP 98.3
== END 2017-05-14 16:50 | disposition home or self-care (01) ==
LOC: FIMAGING 07:14
PROVIDERS: ATTEND Internal Medicine Rheumatology
PROC: 0TB03ZX Excision of Right Kidney, Percutaneous Approach, Diagnostic (ICD-10-PCS; principal; 2017-05-14)
DX: N05.7 Unspecified nephritic syndrome with diffuse crescentic glomerulonephritis (principal); N26.9 Renal sclerosis, unspecified
CPT/HCPCS: J2250; J3010

== ENCOUNTER 2018-04-20 08:47 | Day surgery (SDC) | payer BC ==
[~2018-04-20 08:47] MED LIST: LIDOCAINE 2% 5 ML SDV ONE; PROPOFOL 200 MG/20 ML VIAL ONE; fentaNYL 100 MCG/2 ML INJ ONE
[2018-04-20] MEDS ORDERED: LR 1,000 ML IV ONE (09:20)
--- NOTE | 2018-04-20 09:49 | PDANEPAE ---
ANE History of Present Illness anxiety, GERD here for EGD ANE Past Medical History - Cardiovascular History Hx Hypertension: No Hx Arrhythmias: No Hx Chest Pain: No Hx Coronary Artery / Peripheral Vascular Disease: No Hx CHF / Valvular Disease: No Hx Palpitations: No Cardiovascular History Comment: vasculitis - Pulmonary History Hx COPD: No Hx Asthma/Reactive Airway Disease: Yes Hx Recent Upper Respiratory Infection: No Hx Oxygen in Use at Home: No Hx Sleep Apnea: No Sleep Apnea Screening Result - Last Documented: Negative Pulmonary History Comment: cold triggers asthma - Neurologic History Hx Cerebrovascular Accident: No Hx Seizures: No Hx Dementia: No - Endocrine History Hx Diabetes: No - Renal History Hx Renal Disorders: Yes Renal History Comment: damage r/t vasculitis - Liver History Hx Hepatic Disorders: No - Neurological & Psychiatric Hx Hx Neurological and Psychiatric Disorders: No - Cancer History Hx Cancer: No - Congenital Disorder History Hx Congenital Disorders: No - GI History Hx Gastrointestinal Disorders: Yes Gastrointestinal History Comment: stomach carpet of lesions R/T vasculitis - Other Health History Other Health History: none - Chronic Pain History Chronic Pain: No - Surgical History Prior Surgeries: endoscopy 2018. kidney biopsy 2018. appendectomy 2018. colonoscopy 2018 ANE Review of Systems Review of Systems: - Exercise capacity METS (RN): 5 METS ANE Patient History - Allergies Allergies/Adverse Reactions: codeine Allergy (Verified 04/17/18 16:44) Vomiting - Home Medications Home Medications: Cholecalciferol (Vitamin D3) 04/17/18 [Last Taken 04/16/18] Pantoprazole Sodium [Protonix 40mg (*)] 04/17/18 [Last Taken 04/20/18 07:45] - NPO status NPO Since - Liquids (Date): 04/20/18 NPO Since - Liquids (Time): 07:45 NPO Since - Solids (Date): 04/19/18 NPO Since - Solids (Time): 20:00 - Smoking Hx Smoking Status: Never smoked - Family Anes Hx Family Hx Anesthesia Complications: NONE ANE Labs/Vital Signs - Vital Signs Blood Pressure: 133/95 Heart Rate: 67 Respiratory Rate: 16 O2 Sat (%): 96 Height: 172.72 cm Weight: 97.522 kg ANE Physical Exam - Airway Neck exam: FROM Mallampati Score: Class 2 Mouth exam: normal dental/mouth exam - Pulmonary Pulmonary: no respiratory distress, no rales or rhonchi - Cardiovascular Cardiovascular: regular rate and rhythym, no murmur, rub, or gallop - ASA Status ASA Status: II ANE Anesthesia Plan Anesthesia Plan: GA with mask Total IV Anesthesia: Yes
[2018-04-20] MEDS ORDERED: INDOMETHACIN 50 MG SUPP PR PRN (10:46)
--- NOTE | 2018-04-20 10:46 | PDGENHP ---
History & Physical Chief Complaint: abnl imaging History of Present Illness: 57 year old male presents for evaluaton of abnormal endosopy and epigastric ab pain. Pertinent Past, Social, Family History: PMHx: vasculitis, GERD, asthma. PSughx : appy, kidney bx Relevant Physical Exam: HEENT: ANICTERICC. CV: RRR +s1s2. Lungs: CTAB. Abd: soft, nt, + bs Cardiorespiratory Assessment: ASA 2
[2018-04-20] MEDS ORDERED: NS 500 ML IV SCH (11:00)
[2018-04-20] MEDS ORDERED: MEPERIDINE 25 MG/0.5 ML AMP IVP PRN (11:01)
[2018-04-20] MEDS ORDERED: DEXAMETHASONE 4 MG/ML VIAL IVP PRN (11:01)
[2018-04-20] MEDS ORDERED: ONDANSETRON 4 MG/2 ML VIAL IVP PRN (11:01)
[2018-04-20] MEDS ORDERED: NALOXONE HCL 0.4 MG/ML INJ IVP PRN (11:01)
[2018-04-20] MEDS ORDERED: fentaNYL 100 MCG/2 ML INJ IVP PRN (11:01)
[2018-04-20] MEDS ORDERED: HYDROCODONE/APAP 5/325 TAB PO PRN (11:01)
--- NOTE | 2018-04-20 11:08 | POSTANESTH ---
Post Anesthetic Evaluation Cardiovascular Status: Normal, Stable Respiratory Status: Normal, Stable Level of Consciousness/Mental Status: Can Participate in Eval, Alert and Oriented Pain Control: Adequate, Prn Tx Ordered Nausea/Vomiting Control: Adequate, Prn Tx Ordered Complications Possibly Related to Anesthesia: None Noted
--- NOTE | 2018-04-20 11:19 | GIREPORT ---
[facility] Surgical Services - Endoscopy Department Patient Name: Gentry Mock Procedure Date: 04/20/2018 10:45 AM Patient Type: Outpatient Attending MD/ ER Physician: Denzel Rey MD Procedure: Upper GI endoscopy Indications: Epigastric abdominal pain, Heartburn, Abnormal CT of the GI tract Patient Profile: 57 year old male presents for evaluation of epigastric abdominal pain, heartburn, and abnormal imaging (during prior hospitalization) Providers: Denzel Rey MD Medicines: Monitored Anesthesia Care Complications: No immediate complications. Estimated blood loss: Minimal. Description of Procedure: After obtaining informed consent, the endoscope was passed under direct vision. Throughout the procedure, the patient's blood pressure, pulse, and oxygen saturations were monitored continuously. The Endoscope was intro duced through the mouth, and advanced to the second part of duodenum. The [facility] GI endoscopy was accomplished without difficulty. The patient tolerated th e procedure well. Findings: The examined esophagus was normal. A medium-sized hiatal hernia was present. Patchy severely erythematous, nodular mucosa with polypoid lesions were found in the entire examined stomach. Biopsies were taken with a cold forceps for histology. The examined duodenum was normal. Estimated Blood Loss: Estimated blood loss was minimal. Post Op Diagnosis: - Normal esophagus. - Medium-sized hiatal hernia. - Erythematous, nodular mucosa in the stomach. Biopsied. - Normal examined duodenum. - Etiology? Await biopsy results. Recommendation: - Discharge patient to home (with escort). - Resume previous diet. - Continue present medications. - Await pathology results. - Thank you for allowing me to participate in the care of your patient. Attending Participation: I personally performed the entire procedure. Denzel Rey MD Denzel Rey MD 04/20/2018 11:19:39 AM This report has been signed electronicallyDenzel Rey MD Number of Addenda: 0 Note Initiated On: 04/20/2018 10:45 AM [email or web address]
[2018-04-20 11:36] VITALS: BP 118/92
== END 2018-04-20 12:22 | disposition home or self-care (01) ==
LOC: FSGY 08:47
PROVIDERS: ATTEND Internal Medicine Gastroenterology
PROC: 0DB68ZX Excision of Stomach, Via Natural or Artificial Opening Endoscopic, Diagnostic (ICD-10-PCS; principal; 2018-04-20 10:15)
DX: K31.7 Polyp of stomach and duodenum (principal); K21.9 Gastro-esophageal reflux disease without esophagitis; K44.9 Diaphragmatic hernia without obstruction or gangrene; J45.909 Unspecified asthma, uncomplicated
CPT/HCPCS: J2704; J3010